=== PATIENT | female | born 1990 | race Caucasian/White ===

== ENCOUNTER 2020-09-30 11:15 | Inpatient (IN) | payer MEDICAID, SELFPAY ==
[2020-09-30] VITALS (77 sets, daily range): BP systolic 104–167; BP diastolic 56–96; PULSE 65–131; RESP 17–20; TEMP 36–38.9; O2SAT 98–100; BMI 31.1
[2020-09-30] MEDS: lactated ringers 1,000 ML 999 ML IV (11:03)
[2020-09-30 11:06] LABS: Basophils % 0.2 %; Eosinophils # 0.1 10^3/uL (0.0-0.8); Eosinophils % 0.5 %; Hematocrit 30.3 % (37.0-47.0); Hemoglobin 9.6 g/dL (11.5-15.3); Lymphocytes # 1.4 10^3/uL (0.8-4.8); Lymphocytes % 11.9 %; Mean Corpuscular HGB Conc 31.7 g/dL (30.0-36.0); Mean Corpuscular Hemoglobin 23.7 pg (28.0-34.0); Mean Corpuscular Volume 74.8 fL (81-99); Mean Platelet Volume 12.2 fL (7.4-10.4); Monocytes # 0.6 10^3/uL (0.2-0.9); Monocytes % 5.3 %; Neutrophils # 9.33 10^3/uL (1.8-7.7); Neutrophils % 81.6 %; Nucleated Red Blood Cells % 0.2 %; Platelet Count 222 10^3/cmm (130-400); Red Blood Count 4.05 10^6/uL (4.1-5.3); Red Cell Distribution Width 15.5 % (12.1-15.1); White Blood Count 11.4 10^3/uL (4.0-10.0)
[2020-09-30 11:24] LABS: Amphetamines Screen Urine Negative (Negative); Barbiturates Screen Urine Negative (Negative); Benzodiazepines Screen Urine Negative (Negative); Cocaine Screen Urine Negative (Negative); Opiate Screen Urine Negative (Negative); PCP Screen Urine Negative (Negative); THC Screen Urine Negative (Negative)
--- NOTE | 2020-09-30 11:40 | ANES.PREANE2 ---
Pre-Anesthetic Assessment Pre-Anesthetic Assessment: Height/Weight: Height 1.68 m Weight 87.543 kg Temp Pulse Resp BP Pulse Ox 97.0 F L 72 18 127/74 100 09/30/20 12:04 09/30/20 13:15 09/30/20 10:35 09/30/20 13:15 09/30/20 12:23 Preop Diagnosis: IUP Proposed Procedure: Epidural Familial anesthetic complications: None Was Beta Kishor taken within 24 hours: N/A Last intake: Ate hot pocket this morning Social: Social History: Tobacco and No alcohol Exam: Pre-Anes Outpt Exam: alert, oriented x 3, clear to auscultation bilaterally and regular rate & rhythm Airway: Cervical ROM: WNL MP: 3 Dentition: Chipped Anesthetic Plan: ASA status: 2 Anesthesia: Regional (specify below) Risk of > 500 ml blood loss (7ml/kg in children): Yes, adequate IV access and fluids planned Meds/Allergies Current Medications: Current Medications Generic Name Dose Route Start Last Admin Trade Name Freq PRN Reason Stop Dose Admin Dextrose/Lactated Ringer's 1,000 mls @ 125 m ls/hr 09/30/20 10:45 09/30/20 12:00 Dextrose 5%-Lact ated Ringers IV 125 mls/hr .Q8H ELISSA Administration Ropivacaine 200 mg in 100 mls @ 13 mls/hr 09/30/20 10:45 09/30/20 12:00 Naropin Premix EPIDURAL 13 mls/hr .Q7H42M ELISSA Administration Lactated Ringer's 1,000 mls @ 999 m ls/hr 09/30/20 10:37 09/30/20 12:02 Lactated Ringers IV Infused .Q1H1M PRN Infusion See label comment s PFSH Anesthesia Female Reproductive History: : 5 Data Anesthesia CBC & Chem 7: 09/30/20 10:45 Other Labs: Laboratory Results - last 48 hr 09/30/20 09/30/20 10:30 10:45 WBC 11.4 H RBC 4.05 L Hgb 9.6 L Hct 30.3 L MCV 74.8 L MCH 23.7 L MCHC 31.7 RDW 15.5 H Plt Count 222 MPV 12.2 H Neut % (Auto) 81.6 Lymph % (Auto) 11.9 [place] % (Auto) 5.3 Eos % (Auto) 0.5 Baso % (Auto) 0.2 Neut # (Auto) 9.33 H Lymph # (Auto) 1.4 [place] # (Auto) 0.6 Eos # (Auto) 0.1 Baso # (Auto) 0.0 Nucleated RBC % (auto) 0.2 Nucleated RBCs # 0.0 Urine Opiates Screen Negative Ur Barbiturates Screen Negative Ur Phencyclidine Scrn Negative Ur Amphetamines Screen Negative U Benzodiazepines Scrn Negative Urine Cocaine Screen Negative U Marijuana (THC) Screen Negative Cardiac Studies: No Data to Display
[2020-09-30] MEDS: dextrose 5%-lactated ringers 1,000 ML 125 ML IV (12:00)
--- NOTE | 2020-09-30 13:22 | ANES.PROC ---
Anesthesia Procedures Procedure/Date: 09/30/20 Epidural: Time Out Performed: Yes Consents Signed: Procedure Consent Consent: requested by attending/covering physician, from patient, risks and benefits reviewed and patient agrees to proceed Lumbar Level: L3-L4 Epidural position: sitting Epidural procedure: sterile prep of area, 1% lidocaine to numb the area, 18 g needle, negative for paresthesia passed, neg for paresthesia, test dose given, 1.5% xylocaine 1:200k epi (5 cc (divided dose)), 0.2% Ropivacaine bolus ml (5 cc), placed PCEA, no systemic response, sterile dressing applied, L.U.D. no apparent complications and 0.2% Ropiavacaine @ mls/hr (13) Additional Comments: MIKE at 8 cm threaded to 13 cm
[2020-09-30] MEDS: oxytocin 30 UNIT/500 ML BAG IV (13:40)
--- NOTE | 2020-09-30 15:41 | PM.DELIVERY ---
Delivery Note: Date of delivery: September 30, 2020 Pre-Delivery Course: The patient is a 29-year-old 5 para 4-0-0-4 at 39 weeks estimated gestational age who presented to the hospital in active labor with spontaneous rupture of membranes. Upon arrival to hospital she was having copious amounts of clear vaginal drainage. She was found to be ruptured. Her cervix was noted to be 6 cm dilated. As result she was admitted to the hospital. An epidural was placed. An amniotomy was performed for a 4 bag that was noted. She then progressed to complete without difficulty. Her was notable for being on Subutex which was provided for her by [facility] in [place]. She was on 8 mg twice a day. In addition she was on have chronic hepatitis C prior to her . She smokes daily. Her labs were otherwise unremarkable. Her blood type is A positive. Her glucose screen was within normal limits. She had had a positive group B strep with a previous , but her infants did not have any problems and during this her group B strep was negative. Her Covid test was negative. She demonstrated appropriate interval growth during her , and her anatomic survey was unremarkable. Delivery: DELIVERY: The patient progressed to complete without difficulty. She delivered a female with a weight of 7 pounds 15 ounces with Apgars of 8, 9. The baby was delivered from the ALEA position and placed on the mother's abdomen. The cord was then clamped and cut approximately 1 minute after delivery. There was no nuchal cord. There was no meconium. The placenta and 3 vessel cord were delivered intact shortly thereafter. The perineum and vaginal vault were carefully examined. No significant lacerations were noted. Both the mother and the baby were in stable condition. A&P Assessment and plan (1) 39 weeks gestation of : I anticipate routine care. We will continue her Subutex. While anticipate she can technically be discharged tomorrow, her baby will likely require a 5 to 7-day hospital stay to evaluate for, and treat potential withdrawal. Otherwise, I am hopeful that she will have an unremarkable hospital stay. Status: Acute (2) Vaginal delivery: Status: Acute (3) complicated by subutex maintenance, antepartum: Status: Acute (4) Hepatitis C: Status: Acute (5) Tobacco use complicating : Status: Acute Coding Level of Care Code Acute Hot Air Furnace Installer Repairer for Chg Fwd Diagnoses 39 weeks gestation of Z3A.39 Vaginal delivery O80 complicated by subutex maintenance, antepartum O99.320; F11.20 Hepatitis C B19.20 Tobacco use complicating O99.330
[2020-09-30] MEDS: docusate sodium 100 mg Capsule PO (17:49)
--- NOTE | 2020-09-30 18:23 | PC.NURSE ---
Patient ambulated to PP room at this time, no complaints of dizziness, nausea, or lightheadedness
[2020-09-30] MEDS: acetaminophen 325 mg Tablet 650 MG PO (18:56)
[2020-09-30] MEDS: buprenorphine-naloxone 4-1 mg Film 2 EACH SUBLINGUAL (19:23)
[2020-09-30] MEDS: ibuprofen 800 mg tablet PO (20:16)
[2020-09-30] MEDS: nicotine 21 mg Patch 1 PATCH TRANSDERMA (21:05)
[2020-10-01 00:13] VITALS: BP 112/62; PULSE 76; RESP 18; TEMP 36.9; O2SAT 98
[2020-10-01] MEDS: acetaminophen 325 mg Tablet 650 MG PO ×2 (03:06→12:31)
[2020-10-01 03:52] LABS: Hematocrit 28.5 % (37.0-47.0); Mean Corpuscular HGB Conc 31.6 g/dL (30.0-36.0); Mean Corpuscular Hemoglobin 23.7 pg (28.0-34.0); Mean Corpuscular Volume 75.2 fL (81-99); Mean Platelet Volume 10.8 fL (7.4-10.4); Platelet Count 183 10^3/cmm (130-400); Red Blood Count 3.79 10^6/uL (4.1-5.3); Red Cell Distribution Width 15.7 % (12.1-15.1); White Blood Count 18.4 10^3/uL (4.0-10.0)
[2020-10-01 04:20] VITALS: BP 131/88; PULSE 71; RESP 16; TEMP 36.8; O2SAT 100
[2020-10-01] MEDS: docusate sodium 100 mg Capsule PO (08:46)
[2020-10-01] MEDS: prenatal vitamin Capsule 1 CAP PO (08:46)
[2020-10-01] MEDS: ibuprofen 800 mg tablet PO ×2 (08:46→15:48)
[2020-10-01 08:49] VITALS: BP 107/74; PULSE 71; RESP 16; TEMP 36.4
[2020-10-01] MEDS: buprenorphine-naloxone 4-1 mg Film 2 EACH SUBLINGUAL (09:24)
--- NOTE | 2020-10-01 09:31 | ANE.PACU2 ---
Inpatient post-anesthesia follow up: Airway intact: Yes Vital signs: Temperature 97.5 F Pulse Rate 71 Respiratory Rate 16 Blood Pressure 107/74 Pulse Oximetry 100 Oxygen Delivery Me thod Room Air Oxygen Flow Rate 10 Fraction of Inspir ed Oxygen Hydration adequate: Yes Nausea and vomiting: No Pain level: 2 Mental status: Baseline Additional Comments: No s/s infection at epidural site, no weakness/numbness legs, no headache, peeing [id number] sánchez
--- NOTE | 2020-10-01 16:19 | P.DS_ITS ---
Discharge Providers SPECIAL EDUCATION TUTOR Date of Admission: 09/30/20 11:15 Date of Discharge: 10/01/20 Attending Provider at Admission: Matthew Heard MD Attending Provider at Discharge: Matthew Heard MD Primary Care Provider: Mu Ritter Diagnoses at Discharge Discharge Diagnosis (1) 39 weeks gestation of : Status: Acute (2) Vaginal delivery: Status: Acute (3) complicated by subutex maintenance, antepartum: Status: Acute (4) Hepatitis C: Status: Acute (5) Tobacco use complicating : Status: Acute Reason for Visit Reason for Visit: Possible rupture of membranes Hospital Course Hospital Course The patient presented to the hospital in active labor with spontaneous rupture of membranes. She progressed to complete and had an unremarkable delivery of a healthy appearing term . Her course is also been unremarkable. Her pain is been well controlled. Her bleeding has been within normal limits. There have been no concerns. She has continued on her Suboxone. We did have to replace it with Subutex for 1 equivalent dose. She will be discharged today, but will be staying in the hospital for the next 4 to 6 days with her infant. Information Peripartum Data: Infant Delivery Method: Vaginal Physical Exam Narrative: EXAM NARRATIVE: The patient is alert. She appears comfortable. Her heart has a regular rate and rhythm with no murmurs appreciated. Lungs are clear to auscultation bilaterally. Her fundus is firm and below the umbilicus. Urinary Catheter Management^: Chavez: Cath Placed During This Visit: yes Urinary Catheter Date of Insertion: 09/30/20 Urinary Catheter Time of Insertion: 12:30 Discharge Data Data Completed and Pending: Labs from last 24 hours 10/01/20 03:42 WBC 18.4 H RBC 3.79 L Hgb 9.0 L Hct 28.5 L MCV 75.2 L MCH 23.7 L MCHC 31.6 RDW 15.7 H Plt Count 183 MPV 10.8 H Vitals: Last Vital Signs Temp 97.5 F L 10/01/20 08:49 Pulse 71 10/01/20 08:49 Resp 16 10/01/20 08:49 BP 107/74 10/01/20 08:49 Pulse Ox 100 10/01/20 04:20 Discharge Plan Discharge Patient Disposition: Home Condition: Stable Prescriptions: New ibuprofen 800 mg Tablet 800 mg PO TID Qty: 45 RF: 0 Continued buprenorphine HCl 8 mg Tablet, Sublingual 8 mg SUBLINGUAL BID RF: 0 Discharge Orders: Discharge Order (Routine); Ordered 10/01/20 Ordered By: Matthwe Heard Referrals: Matthew Heard MD [Physician] - 6 Weeks Discharge Diet: Usual diet Discharge Activity: Limit activity as instructed Discharge Attestations SPECIAL EDUCATION TUTOR Time Spent in Discharge Care*: less than 30 min Coding Level of Care Code Acute Snow Removing Supervisor for Chg Fwd Diagnoses 39 weeks gestation of Z3A.39 Vaginal delivery O80 complicated by subutex maintenance, antepartum O99.320; F11.20 Hepatitis C B19.20 Tobacco use complicating O99.330
[2020-10-01 17:34] VITALS: BP 125/74; PULSE 83; RESP 16; TEMP 36.8
== END 2020-10-01 17:50 | disposition home or self-care (01) | DRG 806 ==
LOC: OPOB 15:42 → OBGYN 15:42
PROVIDERS: Admitting Provider Family Medicine; Family Provider Nurse Practitioner Family; PCP Nurse Practitioner Family; Visit Provider Family Medicine
DX: O98.42 Viral hepatitis complicating childbirth (principal); F11.20 Opioid dependence, uncomplicated; Z37.0 Single live birth; O99.324 Drug use complicating childbirth; B18.2 Chronic viral hepatitis C; O99.334 Smoking (tobacco) complicating childbirth; F17.210 Nicotine dependence, cigarettes, uncomplicated; O99.344 Other mental disorders complicating childbirth; F31.9 Bipolar disorder, unspecified; Z3A.39 39 weeks gestation of pregnancy
CPT/HCPCS: 12345; 36415; 51702; 59025; 59409; 80306; 83986; 85025; 85027; 99211; J0573; J2795

== ENCOUNTER → 2021-05-12 14:48 | Outpatient (BNVA) | payer OTHER, MEDICAID, SELFPAY | PROVIDERS: Family Provider Nurse Practitioner Family; PCP Nurse Practitioner Family; Visit Provider Psychiatry & Neurology Psychiatry | DX: F33.1 Major depressive disorder, recurrent, moderate (principal); F11.20 Opioid dependence, uncomplicated; F15.20 Other stimulant dependence, uncomplicated | CPT/HCPCS: 99204 ==

== ENCOUNTER 2022-03-17 02:20 | Inpatient (IN) | payer MEDICAID, SELFPAY ==
[2022-03-16] VITALS (14 sets, daily range): BP systolic 137–155; BP diastolic 79–91; PULSE 44–76; RESP 16; TEMP 36.7; O2SAT 98–99; BMI 33.7
[2022-03-16] MEDS: miSOPROStol 100 mcg tablet 25 MCG VAGINAL (20:55)
[2022-03-16 21:02] LABS: Basophils % 0.3 %; Eosinophils # 0.1 10^3/uL (0.0-0.8); Eosinophils % 1.7 %; Hematocrit 32.8 % (37.0-47.0); Hemoglobin 10.4 g/dL (11.5-15.3); Lymphocytes # 1.4 10^3/uL (0.8-4.8); Lymphocytes % 21.8 %; Mean Corpuscular HGB Conc 31.7 g/dL (30.0-36.0); Mean Corpuscular Hemoglobin 25.4 pg (28.0-34.0); Mean Platelet Volume 11.6 fL (7.4-10.4); Monocytes # 0.4 10^3/uL (0.2-0.9); Monocytes % 5.8 %; Neutrophils # 4.49 10^3/uL (1.8-7.7); Neutrophils % 70.1 %; Nucleated Red Blood Cells % 0 %; Platelet Count 239 10^3/cmm (130-400); Red Cell Distribution Width 14.3 % (12.1-15.1); White Blood Count 6.4 10^3/uL (4.0-10.0)
[2022-03-16] MEDS: nicotine 21 mg Patch 1 PATCH TRANSDERMA (22:42)
[2022-03-17] VITALS (49 sets, daily range): BP systolic 117–176; BP diastolic 62–96; PULSE 41–73; RESP 16–17; TEMP 36.6–36.7; O2SAT 97–100
[2022-03-17] MEDS: lactated ringers 1,000 ML 999 ML IV ×2 (00:15→01:00)
[2022-03-17] MEDS: fentaNYL 50 mcg/mL INJ 2mL IVP (01:00)
--- NOTE | 2022-03-17 01:28 | P.ANESASSM_ITS ---
Pre-Anesthetic Assessment Height/Weight: Height 1.68 m Weight 94.801 kg Temp Pulse Resp BP Pulse Ox O2 Del Method 98.0 F 47 L 17 136/89 99 03/16/22 20:30 03/17/22 01:24 03/17/22 01:00 03/17/22 01:24 03/17/22 01:22 03/16/22 21:41 Preop Diagnosis: IUP epidural Familial anesthetic complications: none Was Beta Kishor taken within 24 hours: N/A Was Clonidine taken within 24 hours: N/A Last Intake: 15:00 Social Tobacco and No alcohol 1.5ppd pack(s) per day 10 pack years Exam alert, oriented x 3, clear to auscultation bilaterally and regular rate & rhythm Airway Submandibular: within normal limits Cervical ROM: within normal limits Mallampati: Class II Dentition: false Pulmonary None reported CV/HEM None reported None reported Hepatic Hepatitis (B) GI Gastroesophageal Reflux Disease Metabolic None reported Musc/skel None reported Neuropsych Anxiety and Depression Anesthetic Plan ASA status: 2 Anesthesia: Regional (specify below) (epidural) Risk of > 500 ml blood loss (7ml/kg in children): No Medications/Allergies Home Medications Medication Instructions Recorded Confirmed Last Taken Type buprenorphine HCl 8 mg sublingual 8 mg sublingual BID 09/30/20 03/16/22 03/16/22 History tablet 1 tab PO DAILY 03/16/22 03/16/22 03/16/22 History Allergies Allergy/AdvReac Type Severity Reaction Status Date / Time cephalexin [From Keflex] Allergy Unknown ALGY-Hives Verified 03/16/22 22:29 Penicillins Allergy Unknown ALGY-Hives Verified 03/16/22 22:29 Current Medications Generic Name Dose Route Start Last Admin Trade Name Freq PRN Reason Stop Dose Admin Fentanyl 25 - 100 mcg 03/16/22 20:11 03/17/22 01:00 Fentanyl 50 Mcg/Ml Inj 2ml IVP 25 mcg Q1H PRN Administration SEVERE PAIN Lactated Ringer's 1,000 mls @ 999 mls/hr 03/17/22 00:12 03/17/22 00:15 Lactated Ringers IV 999 mls/hr .Q1H1M PRN Administration See label comments Nicotine 1 patch 03/16/22 22:16 03/16/22 22:42 Nicotine 21 Mg Patch TRANSDERMA 1 patch DAILY ELISSA Administration PFSH Anesthesia Medical History (Updated 05/19/21 @ 11:36 by Flora Mondragon) Psychiatric care Social History (Updated 05/12/21 @ 15:08 by Neftali Drake LPN) Smoking and tobacco status: current every day smoker cigarettes Years cigarette s smoked: 17 Quit status (tobacco): has tried quititng Number of times tried to quit tobacco: 7 Second hand smoke exposure: Yes Female Reproductive History : 6 Data Anesthesia : 03/16/22 20:49 Short CBC 03/16/22 Range/Units 20:49 WBC 6.4 (4.0-10.0) 10^3/uL Hgb 10.4 L (11.5-15.3) g/dL Hct 32.8 L (37.0-47.0) % MCV 80.0 L (81-99) fl Plt Count 239 (130-400) 10^3/cmm Neut % (Auto) 70.1 % Neut # (Auto) 4.49 (1.8-7.7) 10^3/uL Cardiac Studies: No Data to Display
--- NOTE | 2022-03-17 01:31 | ANES.PROC ---
Anesthesia Procedures Procedure/Date: 03/17/22 Epidural: Time Out Performed: Yes Consents Signed: Procedure Consent and NPO Consent Consent: requested by attending/covering physician, from patient, risks and benefits reviewed and patient agrees to proceed Lumbar Level: L3-L4 Epidural position: sitting Epidural procedure: sterile prep of area (betadine), 1% lidocaine to numb the area (3ml), 18 g needle, negative for paresthesia passed, neg for paresthesia, test dose given, 1.5% xylocaine 1:200k epi (5ml), 0.2% Ropivacaine bolus ml (5ml), placed PCEA, no systemic response, sterile dressing applied, L.U.D. no apparent complications and 0.2% Ropiavacaine @ mls/hr (13ml/hr)
[2022-03-17] MEDS: lactated ringers 1,000 ML 125 ML IV (02:46)
[2022-03-17] MEDS: labetalol 5 mg/mL SDV 20mL 20 MG IVP (02:46)
[2022-03-17 02:51] LABS: Add Urine Culture? Yes; Add Urine Microscopic? YES; Bacteria Urine TRACE /hpf; Bilirubin Urine Neg (Negative); Blood Urine 3+ (Negative); Glucose Urine UA Norm (Normal); Ketones Urine Negative (Negative); Leukocyte Esterase Urine Negative (Negative); Nitrate Urine Negative (Negative); Protein Urine Neg (Negative); RBC Urine 25-40 /hpf (0-2); Squamous Epithelial Cell Urine 0-4 /hpf (0-5); Urine Appearance Clear (CLEAR); Urine Color Yellow (Yellow); Urobilinogen Urine 1 mg/dL (Negative); WBC Urine 0-4 /hpf (0-5); pH Urine 6 (5-7)
[2022-03-17 03:06] LABS: Alanine Aminotransferase 19 U/L (0-33); Albumin Level 3.1 g/dL (3.5-5.2); Alkaline Phosphatase 197 IU/L (35-105); Anion Gap 14.5 (5-19); Aspartate Amino Transferase 25 U/L (0-32); Blood Urea Nitrogen 8 mg/dL (6-20); Calcium 8.7 mg/dL (8.5-10.5); Carbon Dioxide 25 mmol/L (22-29); Chloride 101 mmol/L (98-107); Globulin 3.4 g/dL (1.3-4.6); Glucose 88 mg/dL (65-115); Osmolality Calculated 282 mOsm/kg (285-295); Potassium 3.5 mmol/L (3.5-5.1); Sodium 137 mmol/L (136-145); Total Bilirubin 0.5 mg/dL (0.15-1.2); Total Protein 6.5 g/dL (6.6-8.7); Uric Acid 5.6 mg/dL (2.4-5.7)
[2022-03-17 03:08] LABS: Urine Creatinine 52 mg/dL (28-217); Urine Protein Random 8 mg/dL
[2022-03-17] MEDS: oxytocin 30 UNIT/500 ML BAG 600 UNIT IV (03:10)
[2022-03-17 03:14] LABS: UPRO/UCREAT Ratio 0.15 mg/mg CR
--- NOTE | 2022-03-17 04:21 | PM.OPHPUD ---
Labor & Delivery H&P Update Date of Procedure: March 17, 2022 Date H&P Performed: 03/16/22 Changes to previous documentation: None Admission Diagnosis: Preop diagnosis: IUP Planned procedure: Spontaneous vaginal delivery Other information: The patient is a 31-year-old 6 para 5-0-0-5 with an estimated gestational age of 40 weeks and 2 days who presented to the hospital for induction. Her is been remarkable for being positive for hepatitis C. She is also on Subutex daily. Otherwise her has been unremarkable. She has had consistent care. There have been no concerns. Her blood type is a positive. Her antibody screen is negative. She was GBS negative. The remainder of her labs are within normal limits.
--- NOTE | 2022-03-17 04:24 | PM.DELIVERY ---
Delivery Note: Date of delivery: March 17, 2022 Pre-delivery diagnoses: 31-year-old 6 para 5 at 40 weeks and 2 days gestational age presenting for induction Post-delivery diagnoses: Status post spontaneous vaginal delivery Procedure: Spontaneous vaginal delivery Delivering Physician: Matthew Heard Estimated blood loss (mL): 100 Pre-Delivery Course: The patient presented to the hospital for induction. She was placed on Cytotec x1. An epidural was placed. She did have 2 episodes of systolic blood pressures greater than 160 after her epidural. She was placed on labetalol x1. She had no other symptoms of preeclampsia. A preeclamptic panel was ordered and was negative. She progressed to complete without difficulty. Delivery: DELIVERY: The patient progressed to complete without difficulty. She delivered a female with a weight of 7 pounds 10 ounces with Apgars of 9, 9. The baby was delivered from the ALEA position and placed on the mother's abdomen. The cord was then clamped and cut. There was a nuchal cord x1 which was easily reduced prior to delivery of the shoulders. There was terminal meconium. The placenta and 3 vessel cord were delivered intact shortly thereafter. The perineum and vaginal vault were carefully examined. No lacerations were noted. Both the mother and the baby were in stable condition. A&P Assessment and plan (1) 40 weeks gestation of : Status: Acute (2) Hepatitis C: Status: Acute (3) Opioid use disorder, severe, dependence: Status: Acute (4) Status post vaginal delivery: I anticipate routine care. She will continue on her Subutex. Status: Acute Coding Level of Care Code Acute Carbon Paste Mixer Operator for Chg Fwd Diagnoses 40 weeks gestation of Z3A.40 Hepatitis C B19.20 Opioid use disorder, severe, dependence F11.20 Status post vaginal delivery
--- NOTE | 2022-03-17 05:26 | PC.NURSE ---
Insertion site bleeding despite pressure held with 2x2, pressure dressing applied with 2x2 and foam tape.
[2022-03-17] MEDS: prenatal vitamin Capsule 1 CAP PO (09:42)
[2022-03-17] MEDS: ibuprofen 800 mg tablet PO ×2 (09:42→21:07)
[2022-03-17] MEDS: docusate sodium 100 mg Capsule PO ×2 (09:42→21:07)
[2022-03-17] MEDS: buprenorphine-naloxone 4-1 mg Film 2 EACH SUBLINGUAL ×2 (10:00→21:07)
--- NOTE | 2022-03-17 14:08 | ANE.PACU2 ---
Inpatient post-anesthesia follow up: Airway intact: Yes Vital signs: Temperature 98.1 F Pulse Rate 45 Respiratory Rate 17 Blood Pressure 142/63 Pulse Oximetry 100 Oxygen Delivery Me thod Room Air Oxygen Flow Rate Fraction of Inspir ed Oxygen Hydration adequate: Yes Nausea and vomiting: No Pain level: 2 Mental status: Baseline
[2022-03-17 16:03] LABS: Hematocrit 31.6 % (37.0-47.0); Hemoglobin 10.5 g/dL (11.5-15.3); Mean Corpuscular HGB Conc 33.2 g/dL (30.0-36.0); Mean Corpuscular Hemoglobin 25.5 pg (28.0-34.0); Mean Corpuscular Volume 76.9 fl (81-99); Mean Platelet Volume 11.5 fL (7.4-10.4); Platelet Count 226 10^3/cmm (130-400); Red Blood Count 4.11 10^6/uL (4.1-5.3); Red Cell Distribution Width 14.5 % (12.1-15.1); White Blood Count 9.3 10^3/uL (4.0-10.0)
[2022-03-18 05:45] VITALS: BP 129/72; PULSE 44; RESP 15; TEMP 36.6; O2SAT 96
[2022-03-18] MEDS: docusate sodium 100 mg Capsule PO (09:39)
[2022-03-18] MEDS: ibuprofen 800 mg tablet PO (09:39)
[2022-03-18] MEDS: prenatal vitamin Capsule 1 CAP PO (09:39)
[2022-03-18] MEDS: buprenorphine-naloxone 4-1 mg Film 2 EACH SUBLINGUAL (09:39)
[2022-03-18 09:45] VITALS: BP 151/73; PULSE 69; RESP 16; TEMP 36.4
--- NOTE | 2022-03-18 11:01 | P.DS_ITS ---
Discharge Providers FRANCHISE BUSINESS CONSULTANT Date of Admission: 03/17/22 02:20 Date of Discharge: 03/18/22 Attending Provider at Admission: Matthew Heard MD Attending Provider at Discharge: Matthew Heard MD Primary Care Provider: Mu Ritter Diagnoses at Discharge Discharge Diagnosis (1) 40 weeks gestation of : Status: Acute (2) Hepatitis C: Status: Acute (3) Opioid use disorder, severe, dependence: Status: Acute (4) Status post vaginal delivery: Status: Acute Reason for Visit Reason for Visit: induction Hospital Course Hospital Course The patient presented to the hospital for induction. She was placed on Cytotec 25 mcg x 1. She then progressed to complete and had an unremarkable vaginal delivery of a healthy-appearing infant. Her course was unremarkable. Her bleeding was within normal limits. Her pain was well controlled. There were no concerns. Information Peripartum Data: Delivery Method: Vaginal Physical Exam Narrative: The patient is alert. She appears comfortable. Her heart has a regular rate and rhythm with no murmurs appreciated. Lungs are clear to auscultation bilaterally. Her fundus is firm and below the umbilicus. Urinary Catheter Management: Chavez Latex: Cath Placed During This Visit: yes, but has since been removed by the nurse Reason for Continuing Indwelling Catheter: Other Urinary Catheter Date of Insertion: 03/17/22 Urinary Catheter Time of Insertion: 01:54 Date Urinary Catheter Removed: 03/17/22 Time Urinary Catheter Discontinued: 03:06 Discharge Data Studies Completed and Pending Pending at discharge Category Date Time Status Urine Culture Stat Lab 03/17/22 02:30 Results Laboratory Results WBC 9.3 10^3/uL (4.0-10.0) 03/17/22 15:58 RBC 4.11 10^6/uL (4.1-5.3) 03/17/22 15:58 Hgb 10.5 g/dL (11.5-15.3) L 03/17/22 15:58 Hct 31.6 % (37.0-47.0) L 03/17/22 15:58 MCV 76.9 fl (81-99) L 03/17/22 15:58 MCH 25.5 pg (28.0-34.0) L 03/17/22 15:58 MCHC 33.2 g/dL (30.0-36.0) 03/17/22 15:58 RDW 14.5 % (12.1-15.1) 03/17/22 15:58 Plt Count 226 10^3/cmm (130-400) 03/17/22 15:58 MPV 11.5 fL (7.4-10.4) H 03/17/22 15:58 Neut % (Auto) 70.1 % 03/16/22 20:49 Lymph % (Auto) 21.8 % 03/16/22 20:49 [place] % (Auto) 5.8 % 03/16/22 20:49 Eos % (Auto) 1.7 % 03/16/22 20:49 Baso % (Auto) 0.3 % 03/16/22 20:49 Neut # (Auto) 4.49 10^3/uL (1.8-7.7) 03/16/22 20:49 Lymph # (Auto) 1.4 10^3/uL (0.8-4.8) 03/16/22 20:49 [place] # (Auto) 0.4 10^3/uL (0.2-0.9) 03/16/22 20:49 Eos # (Auto) 0.1 10^3/uL (0.0-0.8) 03/16/22 20:49 Baso # (Auto) 0.0 10^3/uL (0.0-0.1) 03/16/22 20:49 Nucleated RBC % (auto) 0 % 03/16/22 20:49 Nucleated RBCs # 0.0 /100WBC 03/16/22 20:49 Sodium 137 mmol/L (136-145) 03/17/22 02:30 Potassium 3.5 mmol/L (3.5-5.1) 03/17/22 02:30 Chloride 101 mmol/L (98-107) 03/17/22 02:30 Carbon Dioxide 25 mmol/L (22-29) 03/17/22 02:30 Anion Gap 14.5 (5-19) 03/17/22 02:30 BUN 8 mg/dL (6-20) 03/17/22 02:30 Creatinine 0.9 mg/dL (0.5-0.9) 03/17/22 02:30 GFR Calculation 73.0 mL/min (90-130) L 03/17/22 02:30 Glucose 88 mg/dL (65-115) 03/17/22 02:30 Calculated Osmolality 282 mOsm/kg (285-295) L 03/17/22 02:30 Uric Acid 5.6 mg/dL (2.4-5.7) 03/17/22 02:30 Calcium 8.7 mg/dL (8.5-10.5) 03/17/22 02:30 Total Bilirubin 0.5 mg/dL (0.15-1.2) 03/17/22 02:30 AST 25 U/L (0-32) 03/17/22 02:30 ALT 19 U/L (0-33) 03/17/22 02:30 Alkaline Phosphatase 197 IU/L (35-105) H 03/17/22 02:30 Total Protein 6.5 g/dL (6.6-8.7) L 03/17/22 02:30 Albumin 3.1 g/dL (3.5-5.2) L 03/17/22 02:30 Globulin 3.4 g/dL (1.3-4.6) 03/17/22 02:30 Urine Color Yellow (Yellow) 03/17/22 02:30 Urine Appearance Clear (CLEAR) 03/17/22 02:30 Urine pH 6 (5-7) 03/17/22 02:30 Ur Specific [place] 1.010 (1.005-1.030) 03/17/22 02:30 Urine Protein Neg (Negative) 03/17/22 02:30 Urine Glucose (UA) Norm (Normal) 03/17/22 02:30 Urine Ketones Negative (Negative) 03/17/22 02:30 Urine Blood 3+ (Negative) H 03/17/22 02:30 Urine Nitrate Negative (Negative) 03/17/22 02:30 Urine Bilirubin Neg (Negative) 03/17/22 02:30 Urine Urobilinogen 1 mg/dL (Negative) H 03/17/22 02:30 Ur Leukocyte Esterase Negative (Negative) 03/17/22 02:30 Urine RBC 25-40 /hpf (0-2) H 03/17/22 02:30 Urine WBC 0-4 /hpf (0-5) H 03/17/22 02:30 Ur Squamous Epith Cells 0-4 /hpf (0-5) H 03/17/22 02:30 Amorphous Sediment Not Reportable 03/17/22 02:30 Urine Bacteria Trace /hpf (NONE) 03/17/22 02:30 U Random Total Protein 8 mg/dL 03/17/22 02:30 Urine Creatinine 52 mg/dL (28-217) 03/17/22 02:30 Protein/Creatinin Ratio 0.15 mg/mg CR 03/17/22 02:30 Vitals Last Vital Signs Temp 97.5 F L 03/18/22 09:45 Pulse 69 03/18/22 09:45 Resp 16 03/18/22 09:45 BP 151/73 03/18/22 09:45 Pulse Ox 96 03/18/22 05:45 O2 Del Method 03/18/22 09:45 Discharge Plan Discharge Patient Disposition: Home Condition: Stable Prescriptions: New ibuprofen 800 mg Tablet 800 mg PO TID Qty: 45 0RF Continued buprenorphine HCl 8 mg Tablet, Sublingual 8 mg SUBLINGUAL BID 1 tab PO DAILY Discharge Orders: Discharge Order (Routine); Ordered 03/18/22 Ordered By: Matthew Heard Referrals: Matthew Heard MD [Physician] - 6 Weeks Discharge Diet: Usual diet Discharge Activity: Limit activity as instructed Patient Instructions: Opioid Safety Discharge Attestations FRANCHISE BUSINESS CONSULTANT Time Spent in Discharge Care*: less than 30 min Coding Level of Care Code Acute Gear Generator Set Up Operator for Chg Fwd Diagnoses 40 weeks gestation of Z3A.40 Hepatitis C B19.20 Opioid use disorder, severe, dependence F11.20 Status post vaginal delivery
[2022-03-18 12:55] VITALS: BP 148/97; PULSE 55; RESP 17; TEMP 36.4
== END 2022-03-18 13:00 | disposition home or self-care (01) | DRG 806 ==
LOC: OPOB 11:35 → OBGYN 11:35
PROVIDERS: Admitting Provider Family Medicine; PCP Nurse Practitioner Family; Visit Provider Family Medicine
DX: O48.0 Post-term pregnancy (principal); F11.20 Opioid dependence, uncomplicated; Z37.0 Single live birth; O99.324 Drug use complicating childbirth; O98.42 Viral hepatitis complicating childbirth; B19.20 Unspecified viral hepatitis C without hepatic coma; O99.334 Smoking (tobacco) complicating childbirth; F17.210 Nicotine dependence, cigarettes, uncomplicated; O69.81X0 Labor and delivery complicated by cord around neck, without compression, not applicable or unspecified; O77.0 Labor and delivery complicated by meconium in amniotic fluid; Z3A.40 40 weeks gestation of pregnancy; Z79.899 Other long term (current) drug therapy
CPT/HCPCS: 12345; 36415; 51702; 59409; 80053; 81001; 82570; 84156; 84550; 85025; 85027; 87086; J0573; J2795; J3010; J3490

== ENCOUNTER 2023-04-22 23:50 | Inpatient (IN) | payer BC, MEDICAID, SELFPAY ==
[2023-04-22 21:39] VITALS: BMI 31.6
[2023-04-22 22:05] VITALS: BP 127/75; PULSE 75
[2023-04-22 22:10] VITALS: BP 105/58; PULSE 64
[2023-04-22 22:42] LABS: Amphetamines Screen Urine Negative (Negative); Barbiturates Screen Urine Negative (Negative); Benzodiazepines Screen Urine Negative (Negative); Cocaine Screen Urine Negative (Negative); Opiate Screen Urine Negative (Negative); PCP Screen Urine Negative (Negative); THC Screen Urine Positive (Negative)
[2023-04-23] VITALS (84 sets, daily range): BP systolic 94–170; BP diastolic 53–88; PULSE 50–123; RESP 16–17; TEMP 36.1–37.2; O2SAT 86–100
[2023-04-23 00:01] LABS: Basophils % 0.2 %; Eosinophils # 0.2 10^3/uL (0.0-0.8); Eosinophils % 1.6 %; Lymphocytes # 2.1 10^3/uL (0.8-4.8); Lymphocytes % 18.8 %; Mean Corpuscular HGB Conc 32.3 g/dL (30-55); Mean Corpuscular Hemoglobin 26.9 pg (27-33); Mean Corpuscular Volume 83.3 fl (85-98); Mean Platelet Volume 11.6 fL (7.4-10.4); Monocytes # 0.5 10^3/uL (0.2-0.9); Monocytes % 4.4 %; Neutrophils # 8.15 10^3/uL (1.8-7.7); Neutrophils % 74.6 %; Nucleated Red Blood Cells % 0 %; Platelet Count 204 10^3/cmm (157-399); Red Blood Count 3.72 10^6/uL (3.85-5.65); Red Cell Distribution Width 13.9 % (12.1-15.1); White Blood Count 10.91 10^3/uL (3.29-11.43)
[2023-04-23] MEDS: dextrose 5%-lactated ringers 1,000 ML 125 ML IV (00:03)
[2023-04-23] MEDS: ceFAZolin 2,000 MG in sodium chloride 0.9% (plus) 50 ML 100 MG IV (00:03)
[2023-04-23] MEDS: miSOPROStol 100 mcg tablet 25 MCG SUBLINGUAL (00:10)
[2023-04-23] MEDS: lactated ringers 1,000 ML 999 ML IV ×2 (01:12→02:13)
--- NOTE | 2023-04-23 02:12 | ANES.PREANE2 ---
Pre-Anesthetic Assessment Height/Weight: Height 1.68 m Weight 88.904 kg Pulse BP Pulse Ox O2 Del Method 68 130/68 92 Room Air 04/23/23 02:10 04/23/23 01:58 04/23/23 02:10 04/22/23 23:12 Preop Diagnosis: IUP Labor epidural Was Beta Kishor taken within 24 hours: Yes Was Clonidine taken within 24 hours: Yes Social Tobacco (1ppd ) and No alcohol Exam alert, oriented x 3, clear to auscultation bilaterally and regular rate & rhythm Airway Submandibular: within normal limits Cervical ROM: within normal limits Mallampati: Class II Dentition: false (upper and lower) and full History/ROS No significant history except as noted Pulmonary None reported CV/HEM None reported None reported Hepatic Hepatitis (hep c) GI Gastroesophageal Reflux Disease Metabolic None reported Musc/skel None reported Neuropsych None reported Anesthetic Plan ASA status: 2 Anesthesia: Anesthesia Evaluation and Regional (specify below) Risk of > 500 ml blood loss (7ml/kg in children): No Medications/Allergies Home Medications Medication Instructions Recorded Confirmed Last Taken Type buprenorphine HCl 8 mg sublingual 8 mg sublingual BID 09/30/20 03/16/22 03/16/22 History tablet 1 tab PO DAILY 03/16/22 03/16/22 03/16/22 History ibuprofen 800 mg tablet 800 mg PO TID #45 tabs 03/18/22 Unknown Rx Allergies Allergy/AdvReac Type Severity Reaction Status Date / Time cephalexin [From Keflex] Allergy Unknown ALGY-Hives Verified 04/22/23 22:14 Penicillins Allergy Unknown ALGY-Hives Verified 04/22/23 22:14 Current Medications Generic Name Dose Route Start Last Admin Trade Name Freq PRN Reason Stop Dose Admin Dextrose/Lactated Ringer's 1,000 mls @ 125 mls/hr 04/22/23 22:00 04/23/23 00:03 Dextrose 5%-Lactated Ringers IV 125 mls/hr .Q8H ELISSA Administration PFSH Anesthesia Social History (Updated 05/12/21 @ 15:08 by Neftali Drake LPN) Smoking and tobacco status: current every day smoker cigarettes Years cigarettes smoked: 17 Quit status (tobacco): has tried quititng Number of times tried to quit tobacco: 7 Second hand smoke exposure: Yes Female Reproductive History : 7 Data Anesthesia 04/22/23 23:54 Short CBC 04/22/23 Range/Units 23:54 WBC 10.91 (3.29-11.43) 10^3/uL Hgb 10.00 L (11.27-16.99) g/dL Hct 31.0 L (36-47) % MCV 83.3 L (85-98) fl Plt Count 204 (157-399) 10^3/cmm Neut % (Auto) 74.6 % Neut # (Auto) 8.15 H (1.8-7.7) 10^3/uL Cardiac Studies: No Data to Display Anesthesia Procedures Epidural Time Out Performed: Yes Consents Signed: Procedure Consent Consent: requested by attending/covering physician, from patient, risks and benefits reviewed and patient agrees to proceed Lumbar Level: L4-L5 Epidural position: sitting Epidural procedure: sterile prep of area, 1% lidocaine to numb the area, 18 g needle, negative for paresthesia passed, neg for paresthesia, test dose given, 1.5% xylocaine 1:200k epi, placed PCEA, no systemic response, sterile dressing applied, L.U.D. no apparent complications and 0.2% Ropiavacaine @ mls/hr (10) Additional Comments: MIKE 5cm, catheter easily threaded to 5cm in the space, pt educated on MEDICAID NURSE and all questions answered. Pt reporting decreased pain with contractions. Report to RN at bedside.
[2023-04-23] MEDS: ROPivacaine syringe 100 MG/50 ML SYRINGE 10 MG EPIDURAL ×2 (02:39→07:04)
[2023-04-23] MEDS: ceFAZolin 1,000 MG in sodium chloride 0.9% (plus) 50 ML 100 MG IV (08:50)
[2023-04-23] MEDS: buprenorphine-naloxone 4-1 mg Film 2 EACH SUBLINGUAL ×2 (09:10→16:42)
[2023-04-23] MEDS: nicotine 21 mg Patch 1 PATCH TRANSDERMA (09:10)
--- NOTE | 2023-04-23 10:55 | PM.OPHPUD ---
Labor & Delivery H&P Update Date of Procedure: April 23, 2023 Date H&P Performed: 04/18/23 Admission Diagnosis: 32-year-old 8 para 7-0-0-7 at 39 weeks estimated gestational age presenting with rupture membranes. Preop diagnosis: IUP Planned procedure: Spontaneous vaginal delivery Other information: The patient is a pleasant 32-year-old female who presented to the OB department with a complaint of possible rupture membranes. Her episode occurred at about 1900 today prior to delivery. She noticed a sudden gush of fluid and continued trickling after that. After presenting to the hospital she was noted to have grossly ruptured membranes. He was nitrazine positive. Her has been remarkable for being on Subutex throughout her . She is also noted to be positive for marijuana throughout her as well. She was positive for methamphetamines earlier in her . She was completely negative on all of her drug screens in the third trimester. Her labs were significant for the following. Her blood type is a positive with her antibody screen being negative her drug screen was abnormal as stated. She is positive for hepatitis C. She is positive for group B strep. She is rubella immune. The remainder of her infectious disease profile is within normal limits. Related Problem List Diagnoses (1) Opioid use disorder, severe, dependence: (2) 39 weeks gestation of : (3) Hepatitis C: A&P Assessment and plan (1) Opioid use disorder, severe, dependence: Status: Acute (2) 39 weeks gestation of : Anticipate routine labor and routine delivery. She will be placed on GBS protocol. We placed on Subutex as well. Status: Resolved (3) Hepatitis C: Status: Acute
--- NOTE | 2023-04-23 11:01 | PM.DELIVERY ---
Delivery Note: Date of delivery: April 23, 2023 Pre-delivery diagnoses: 32-year-old 8 para 7-0-0-7 at 39 weeks estimated gestational age presenting with spontaneous rupture membranes Post-delivery diagnoses: Status post spontaneous vaginal delivery Procedure: Spontaneous vaginal delivery Delivering Physician: Matthew Heard Estimated blood loss (mL): 100 Pre-Delivery Course: The patient presented to the hospital was grossly ruptured membranes. She was placed on Cytotec sublingual x1. An epidural was placed. She was placed on GBS protocol. She did have a mild allergy to penicillin, and she was placed on cefazolin. She progressed to complete without difficulty. Delivery: DELIVERY: The patient progressed to complete without difficulty. She delivered a female with a weight of 7 pounds 15 ounces with Apgars of 8, 9. The baby was delivered from the ALEA position. and placed on the mother's abdomen. The cord was then clamped and cut. There was no nuchal cord. There was no meconium. The placenta and 3 vessel cord were delivered intact shortly thereafter. The perineum and vaginal vault were carefully examined. A first-degree anterior midline laceration was noted which was superficial and did not require repair. Both the mother and the baby were in stable condition. Post-Delivery Status: Good A&P Assessment and plan (1) Opioid use disorder, severe, dependence: (2) Hepatitis C: (3) Spontaneous vaginal delivery: The patient's course will likely be relatively unremarkable. She does desire tubal, and we are going to work and see if we can get that set up in the next 24 hours. If not she understands she can have it done in 6 weeks . (4) Marijuana use: Coding Level of Care Code Acute Code for Chg Fwd Diagnoses Opioid use disorder, severe, dependence F11.20 Hepatitis C B19.20 Spontaneous vaginal delivery O80 Marijuana use F12.90
--- NOTE | 2023-04-23 11:15 | P.HP_ITS ---
Providers/Chief Complaint Admitting Physician: Matthew Heard MD Primary Care Provider: Mu Ritter Chief Complaint: possible ROM HPI MANUFACTURING OPERATIONS MANAGER History of Present Illness Juliann Mckeon is a 32 year old multigravida female who just had an unremarkable d elivery of a healthy female . Earlier in her she expressed a desire to have sterilization. At that time we discussed the risks and alternatives. We discussed the risks of bleeding, infection, and damage intra- abdominal organs. We also discussed the 1-200 chance becoming again despite a successful tubal ligation. After discussion she still expressed a desire to have her tube tubes tied postdelivery. Today she once again expressed that desire. Present Details : 7 Para: 5 Labs Rubella: Immune RPR: Negative GBS: Positive Review of Systems General: Reports: 10 or more systems reviewed and unremarkable except in HPI and below Const: Reports: fatigue; Denies: fever(s) Eyes: Denies: change in vision Card: Denies: chest pain GI: Reports: heartburn Musc: Reports: back pain Philip/Lymph: Denies: easy bruising Medications/Allergies Home Medications Medication Instructions Recorded Confirmed Last Taken Type buprenorphine HCl 8 mg sublingual 8 mg sublingual BID 09/30/20 03/16/22 03/16/22 History tablet 1 tab PO DAILY 03/16/22 03/16/22 03/16/22 History ibuprofen 800 mg tablet 800 mg PO TID #45 tabs 03/18/22 Unknown Rx Allergies Allergy/AdvReac Type Severity Reaction Status Date / Time cephalexin [From Keflex] Allergy Unknown ALGY-Hives Verified 04/22/23 22:14 Penicillins Allergy Unknown ALGY-Hives Verified 04/22/23 22:14 PFSH MANUFACTURING OPERATIONS MANAGER PFSH: Social History (Updated 04/23/23 @ 11:19 by Matthew Heard MD) Smoking and tobacco status: current every day smoker cigarettes Years cigarettes smoked: 17 Quit status (tobacco): has tried quititng Number of times tried to quit tobacco: 7 Second hand smoke exposure: Yes Substance/Drug Use: current Substance/Drug use frequency: daily Substance/Drug use type: Marijuana History History Other History: 7 para 6-0-0-6 Vitals/I&O/Wt Last Vital Signs Temp 97.0 F L 04/23/23 06:03 Pulse 78 04/23/23 10:55 BP 137/77 04/23/23 10:55 Pulse Ox 97 04/23/23 03:12 O2 Del Method Room Air 04/22/23 23:12 04/22/23 04/23/23 04/23/23 22:59 06:59 14:59 Intake Total 1000 / 1000 100 / 100 Balance 1000 / 1000 100 / 100 Weight last 48 hrs Weight 196 lb Physical Exam Const: COMMON NORMALS: patient oriented x3 and alert HENMT: COMMON NORMALS: moist oral mucous membranes HEAD & SCALP: normal to inspection Chest: COMMONS NORMALS: normal inspection of the chest Resp: COMMON NORMALS: clear to auscultation bilaterally AUSCULTATION: clear to auscultation bilaterally Cardio: COMMON NORMALS: regular rate and regular rhythm RATE: regular rate RHYTHM: regular rhythm GI: INSPECTION: Yes normal to inspection and Yes other (Fundus at the umbilicus) Extremity: COMMON NORMALS: normal to inspection GENERAL: Yes edema (Trace) Neuro: COMMON NORMALS: patient oriented x3, moves all extremities and no sensory deficits noted SENSORIUM/ORIENTATION: Yes alert Psych: COMMON NORMALS: mental status grossly normal Skin: COMMON NORMALS: no rashes or lesions noted GENERAL SKIN EXAM: no r ashes or lesions noted Urinary Catheter Management: Chavez: Cath Placed During This Visit: yes Reason for Continuing Indwelling Catheter: Required Immobilization for Trauma or Surgery or Anesthesia Urinary Catheter Date of Insertion: 04/23/23 Urinary Catheter Time of Insertion: 03:12 Data 04/22/23 23:54 A&P Assessment and plan (1) Marijuana use: (2) Major depressive disorder, recurrent, moderate: (3) Opioid use disorder, severe, dependence: (4) Hepatitis C: (5) Sterilization: Scheduled for tomorrow morning at 7 AM. The patient will be n.p.o. after midnight. She has no further questions Attestations Medical Necessity Statement*: Routine and post tubal ligation anticipated Coding Level of Care Code Acute Code for Chg Fwd Diagnoses Marijuana use F12.90 Major depressive disorder, recurrent, moderate F33.1 Opioid use disorder, severe, dependence F11.20 Hepatitis C B19.20 Sterilization Z30.2
[2023-04-23] MEDS: ibuprofen 800 mg tablet PO ×2 (15:15→20:34)
--- NOTE | 2023-04-23 17:48 | PC.NURSE ---
this nurse at bedside with child's division
[2023-04-23] MEDS: docusate sodium 100 mg Capsule PO (20:34)
[2023-04-23 22:48] LABS: Hematocrit 32.7 % (36-47); Mean Corpuscular HGB Conc 32.1 g/dL (30-55); Mean Corpuscular Hemoglobin 27.5 pg (27-33); Mean Corpuscular Volume 85.6 fl (85-98); Mean Platelet Volume 11.9 fL (7.4-10.4); Platelet Count 182 10^3/cmm (157-399); Red Blood Count 3.82 10^6/uL (3.85-5.65); Red Cell Distribution Width 13.7 % (12.1-15.1); White Blood Count 14.68 10^3/uL (3.29-11.43)
[2023-04-24] VITALS (12 sets, daily range): BP systolic 114–155; BP diastolic 56–88; PULSE 47–74; RESP 15–18; TEMP 36.6–36.8; O2SAT 98–99
[2023-04-24] MEDS: lactated ringers 1,000 ML 999 ML IV (06:14)
[2023-04-24] MEDS: ceFAZolin 2,000 MG in sodium chloride 0.9% (plus) 50 ML 100 MG IV (06:39)
[2023-04-24] MEDS: metoclopramide 5 mg/mL SDV 2 mL 10 MG IVP (06:58)
[2023-04-24] MEDS: famotidine 20 mg/2 mL INJ IVP (06:58)
[2023-04-24] MEDS: citric acid-sodium citrate 30 mL UDC PO (06:59)
--- NOTE | 2023-04-24 07:26 | P.ANESUD_ITS ---
Pre-Anesthetic Update Pre-Anesthetic Assessment: Date of Surgery/Procedure: 05/04/23 Preop Lilli gnosis: desired sterility Proposed Procedure: Operation Date: 04/24/23 07:10 Proposed Procedures p Post Bilateral Tubal Ligation(Bilateral) - Matthew Heard MD Any changes to Pre-Anesthetic Assessment?: No Last Intake: 04/23/23 2100 Labs Last 48hrs: Short CBC 04/22/23 04/23/23 Range/Units 23:54 22:33 WBC 10.91 14.68 H (3.29-11.43) 10^ 3/uL Hgb 10.00 L 10.50 L (11.27-16.99) g/ dL Hct 31.0 L 32.7 L (36-47) % MCV 83.3 L 85.6 (85-98) fl Plt Count 204 182 (157-399) 10^3/c mm Neut % (Auto) 74.6 % Neut # (Auto) 8.15 H (1.8-7.7) 10^3/u L Vitals: Temperature 98.2 F 04/24/23 04:00 Temperature Source Oral 04/24/23 04:00 Pulse Rate 65 04/24/23 04:00 Pulse Rhythm Regular 04/23/23 08:00 Pulse Strength 3+ Normal 04/23/23 08:00 Respiratory Rate 16 04/24/23 04:00 Respiratory Effort Spontaneous, Non- Labored, Easy 04/22/23 23:12 Respiratory Depth Normal 04/22/23 23:12 Respiratory Patter n Normal 04/22/23 23:12 Blood Pressure 114/56 04/24/23 04:00 Blood Pressure Fadumo n 75 04/24/23 04:00 Blood Pressure Pos ition Right Lateral 04/24/23 04:00 Pulse Oximetry 97 04/23/23 03:12 Oxygen Delivery Me thod Room Air 04/24/23 04:00 Exam: Pre-Anes Outpt Exam: alert, oriented x 3, clear to auscultation bilaterally and regular rate & rhythm Cardiac Studies: No Data to Display
--- NOTE | 2023-04-24 07:50 | PM.OBGYDC ---
Discharge Providers HUMAN RESOURCES VICE PRESIDENT Date of Admission: 04/22/23 23:50 Date of Discharge: 04/24/23 Attending Provider at Admission: Matthew Heard MD Attending Provider at Discharge: Matthew Heard MD Primary Care Provider: Mu Ritter Diagnoses at Discharge Discharge Diagnosis (1) Marijuana use: Status: Acute (2) Major depressive disorder, recurrent, moderate: Status: Acute (3) Opioid use disorder, severe, dependence: Status: Acute (4) Hepatitis C: Status: Acute (5) Sterilization: Status: Acute (6) Status post tubal ligation: Status: Acute Reason for Visit Reason for Visit: possible ROM Hospital Course Hospital Course The patient presented to the hospital with spontaneous rupture membranes. She was not brenna consistently. Cytotec 25 mcg x 1 was given. An epidural was placed. She progressed to complete and had an unremarkable spontaneous vaginal delivery of a healthy 39-week female . Her course was remarkable for having a tubal ligation. It was also unremarkable. Her bleeding was within normal limits. Her pain was well controlled. She continued on Subutex throughout her hospital stay. There were no concerns. Information Peripartum Data: Delivery Method: Vaginal Physical Exam Narrative: She is in no acute distress Lungs are clear auscultation bilaterally Her heart has a regular rate and rhythm Her fundus is below the umbilicus and firm Her dressing is clean, dry and intact Her extremities have trace edema Urinary Catheter Management: Chavez: Cath Placed During This Visit: yes Reason for Continuing Indwelling Catheter: Required Immobilization for Trauma or Surgery or Anesthesia Urinary Catheter Date of Insertion: 04/23/23 Urinary Catheter Time of Insertion: 03:12 History History Other History: 7 para 6-0-0-6 Discharge Data Studies Completed and Pending Laboratory Results WBC 14.68 10^3/uL (3.29-11.43) H 04/23/23 22:33 RBC 3.82 10^6/uL (3.85-5.65) L 04/23/23 22:33 Hgb 10.50 g/dL (11.27-16.99) L 04/23/23 22:33 Hct 32.7 % (36-47) L 04/23/23 22:33 MCV 85.6 fl (85-98) 04/23/23 22:33 MCH 27.5 pg (27-33) 04/23/23 22:33 MCHC 32.1 g/dL (30-55) 04/23/23 22:33 RDW 13.7 % (12.1-15.1) 04/23/23 22:33 Plt Count 182 10^3/cmm (157-399) 04/23/23 22:33 MPV 11.9 fL (7.4-10.4) H 04/23/23 22:33 Neut % (Auto) 74.6 % 04/22/23 23:54 Lymph % (Auto) 18.8 % 04/22/23 23:54 Lynn % (Auto) 4.4 % 04/22/23 23:54 Eos % (Auto) 1.6 % 04/22/23 23:54 Baso % (Auto) 0.2 % 04/22/23 23:54 Neut # (Auto) 8.15 10^3/uL (1.8-7.7) H 04/22/23 23:54 Lymph # (Auto) 2.1 10^3/uL (0.8-4.8) 04/22/23 23:54 Lynn # (Auto) 0.5 10^3/uL (0.2-0.9) 04/22/23 23:54 Eos # (Auto) 0.2 10^3/uL (0.0-0.8) 04/22/23 23:54 Baso # (Auto) 0.0 10^3/uL (0.0-0.1) 04/22/23 23:54 Nucleated RBC % (auto) 0 % 04/22/23 23:54 Nucleated RBCs # 0.0 /100WBC 04/22/23 23:54 Urine Opiates Screen Negative ng/mL (Negative) 04/22/23 22:21 Ur Barbiturates Screen Negative ng/mL (Negative) 04/22/23 22:21 Ur Phencyclidine Scrn Negative ng/mL (Negative) 04/22/23 22:21 Ur Amphetamines Screen Negative ng/mL (Negative) 04/22/23 22:21 U Benzodiazepines Scrn Negative ng/mL (Negative) 04/22/23 22:21 Urine Cocaine Screen Negative ng/mL (Negative) 04/22/23 22:21 U Marijuana (THC) Screen Positive ng/mL (Negative) H 04/22/23 22:21 Vitals Last Vital Signs Temp 98.2 F 04/24/23 04:00 Pulse 65 04/24/23 04:00 Resp 16 04/24/23 04:00 BP 114/56 04/24/23 04:00 Pulse Ox 97 04/23/23 03:12 O2 Del Method Room Air 04/24/23 04:00 Discharge Plan Discharge Patient Disposition: Home Condition: Stable Prescriptions: New ibuprofen 800 mg Tablet 800 mg PO TID Qty: 45 0RF Continued buprenorphine HCl 8 mg Tablet, Sublingual 8 mg SUBLINGUAL BID 1 tab PO DAILY Discontinued ibuprofen 800 mg Tablet 800 mg PO TID Qty: 45 0RF Discharge Orders: Discharge Order (Routine); Ordered 04/24/23 Ordered By: Matthew Heard Referrals: Matthew Heard MD [Physician] - 7-10 days (Please set up 6-week check as well. Thank you) Discharge Diet: Usual diet Discharge Activity: Limit activity as instructed Patient Instructions: Opioid Safety Discharge Attestations HUMAN RESOURCES VICE PRESIDENT Time Spent in Discharge Care*: less than 30 min Coding Level of Care Code Acute Code for Chg Fwd Diagnoses Marijuana use F12.90 Major depressive disorder, recurrent, moderate F33.1 Opioid use disorder, severe, dependence F11.20 Hepatitis C B19.20 Sterilization Z30.2 Status post tubal ligation Z98.51
--- NOTE | 2023-04-24 07:55 | PM.OP ---
Operative Report Date of procedure: April 24, 2023 Pre-op diagnosis: Multigravida female desiring sterilization Post-op diagnosis: Status post sterilization Procedure done: minilaparotomy tubal ligation using a modified [place] technique Specimens removed/disposition: Bilateral fallopian tube segments with the right segment being tagged Pathology: Bilateral fallopian tube segments with the right segment being tagged Surgeon: Matthew Heard MD Estimated blood loss (mL): 5 Complications: None Procedure: The patient was brought back to the operating room where anesthesia was found to be adequate. 10 mL of 0.5% bupivacaine was then used to pre-anesthetize the area just inferior to the umbilicus. A #15 blade was then used to make a 3 cm transverse incision just inferior to the umbilicus. I then dissected down to the underlying subcutaneous tissue until arriving at the fascia. The fascia was then nicked with the scalpel. The fascial incision was extended manually. I identified the fundus of the uterus and followed it to the left fallopian tube. The fallopian tube was then followed to the fimbria. The tube was then ligated, cut, and cauterized in a modified Yong fashion using 0 chromic. The right fallopian tube was then identified and followed through to the fimbria. It was ligated, cut, and cauterized in similar fashion. The right fallopian tube was tagged. Both fallopian tubes had excellent hemostasis. The fascia was reapproximated using 0 Vicryl in running stitch. The subcutaneous tissue was carefully examined and no further bleeding was noted. The skin was then reapproximated using 4-0 Vicryl in a running subcuticular stitch. A sterile dressing was placed. All counts were correct x2. The patient was moved to the recovery room in stable condition.
[2023-04-24] MEDS: docusate sodium 100 mg Capsule PO (08:51)
[2023-04-24] MEDS: nicotine 21 mg Patch 1 PATCH TRANSDERMA (08:52)
[2023-04-24] MEDS: ibuprofen 800 mg tablet PO ×2 (08:52→15:13)
[2023-04-24] MEDS: prenatal vitamin Capsule 1 CAP PO (08:52)
[2023-04-24] MEDS: buprenorphine-naloxone 4-1 mg Film 2 EACH SUBLINGUAL (08:52)
--- NOTE | 2023-04-24 11:41 | ANE.PACU2 ---
Inpatient post-anesthesia follow up: Airway intact: Yes Vital signs: Temperature 98.0 F Pulse Rate 74 Respiratory Rate 18 Blood Pressure 141/83 Pulse Oximetry 98 Oxygen Delivery Me thod Room Air Oxygen Flow Rate Fraction of Inspir ed Oxygen Hydration adequate: Yes Nausea and vomiting: No Pain level: 2 Mental status: Baseline
== END 2023-04-24 16:00 | disposition home or self-care (01) | DRG 797 ==
LOC: OPOB 04-23 01:42 → OBGYN 04-23 01:42
PROVIDERS: Admitting Provider Family Medicine; PCP Nurse Practitioner Family; Visit Provider Family Medicine
PROC: 0UB70ZZ Excision of Bilateral Fallopian Tubes, Open Approach (ICD-10-PCS; CPT 58605; principal; 2023-04-24 07:00)
DX: O99.824 Streptococcus B carrier state complicating childbirth (principal); F11.20 Opioid dependence, uncomplicated; Z37.0 Single live birth; O98.42 Viral hepatitis complicating childbirth; B19.20 Unspecified viral hepatitis C without hepatic coma; O99.324 Drug use complicating childbirth; Z3A.39 39 weeks gestation of pregnancy; Z30.2 Encounter for sterilization
CPT/HCPCS: 36415; 51702; 58605; 59025; 59409; 80306; 83986; 85025; 85027; 88302; 96374; 96376; 99211; J0330; J0573; J0690; J1100; J2405; J2704; J2765; J2795; J3010; J3490; J7120; J7121

== ENCOUNTER 2025-08-01 10:22 | Emergency (ER) | payer BC, MEDICAID, SELFPAY ==
[2025-08-01 10:19] VITALS: BP 145/111; PULSE 76; RESP 16; TEMP 36.3; O2SAT 96; BMI 26.6
--- NOTE | 2025-08-01 10:26 | CT_ITS ---
WS: [id number] CT scan of the head, 08/01/2025 Clinical Data: Symptoms of acute stroke Comparison: CT head, 12/18/2013 DLP: 1041.[address] scans at [facility] use at least one of these dose optimization techniques: automated exposure control; mA and/or kV adjustment per patient size (includes targeted exams where dose is matched to clinical indication); or iterative reconstruction. Findings: The ventricular system is normal without shift. No recent infarct or hemorrhage is seen. There are no abnormal intracerebral masses. The cerebellum and brainstem are not remarkable. Bony windows of the skull and skull base show no fractures or erosions. The mastoid air cells, internal auditory canals, sella turcica, intraorbital contents, and paranasal sinuses are unremarkable. CT/CT head thrombolytic 35363 Impression: Negative CT scan of the head
--- NOTE | 2025-08-01 10:26 | ECG_ITS ---
[facility]: [facility]01 Pat Name: Juliann Mckeon Department: Room: Gender: Female Electrical System Specialist: : 1990 Requested By: Darren Alvares Order Number: [id number] Reading MD: Measurements Intervals [place] Rate: 68 P: 56 NM: 153 QRS: 37 QRSD: 79 T: 64 QT: 413 QTc: 441 Interpretive Statements SINUS RHYTHM POSSIBLE RIGHT VENTRICULAR CONDUCTION DELAY [RSR (QR) IN V1/V2] [email or web address]
--- NOTE | 2025-08-01 10:26 | W.ED.NEUROSD ---
HPI - Neuro Symptoms/Deficit General: Chief Complaint: Neuro Symptoms/Deficit Stated Complaint: LEFT SIDE WEAKNESS Time Seen by Provider: 08/01/25 10:25 History of Present Illness: 34-year-old female brought to the emergency room as a stroke alert. She got up swelling was her normal self went to work and then began to have left-sided weakness. Patient initially seen in the CT suite. Initial NIH scoring done there. Associated symptoms: Deny chest pain Related Data Home Medications ?Medication ?Instructions ?Recorded ?Confirmed buprenorphine HCl 8 mg sublingual 8 mg sublingual BID 09/30/20 08/01/25 tablet clonazepam 0.5 mg tablet 0.5 mg PO TID PRN Anxiety 08/01/25 08/01/25 fluoxetine 20 mg capsule 20 mg PO DAILY 08/01/25 08/01/25 Allergies Allergy/AdvReac Type Severity Reaction Status Date / Time cephalexin (From Keflex) Allergy Unknown ALGY-Hives Verified 08/01/25 10:30 Penicillins Allergy Unknown ALGY-Hives Verified 08/01/25 10:30 Review of Systems Const: Denies: fever(s) or chills Card: Denies: chest pain Resp: Denies: dyspnea GI: Denies: abdominal pain : Denies: dysuria, urinary frequency or urinary urgency Musc: Denies: neck pain or back pain Skin/Breast: Denies: rash PFSH ED PFSH: Social History Smoking and tobacco/nicotine status: current every day tobacco/nicotine user cigarettes Years cigarettes smoked: 17 Quit status (tobacco/nicotine): has tried quititng Number of times tried to quit tobacco: 7 Second hand smoke exposure: Yes Substance/Drug Use: current Substance/Drug use frequency: daily NIH stroke score NIHSS: Level Of Consciousness - 1a: 0 Level Of Consciousness Questions - 1b: Both Correct Level Of Consciousness Commands - 1c: Both Correct Best Gaze - 2: Normal Visual [place] - 3: No Visual Loss Facial Palsy - 4: Normal Motor Arm Right - 5: No Drift Motor Arm Left - 5: No Drift Motor Leg Right - 6: No Drift Motor Leg Left - 6: Effort Against [place] Limb Ataxia - 7: Absent Sensory - 8: Mild To Moderate Loss Best Language - 9: No Aphasia Dysarthia - 10: Normal Extinction And Inattention - 11: 0 Score: Total Score: 3 Physical Exam Const: COMMON NORMALS: no acute distress GENERAL APPEARANCE: cooperative and comfortable ORIENTATION/CONSCIOUSNESS: Yes awake, Yes oriented to person, Yes oriented to place and Yes oriented to time HENMT: COMMON NORMALS: normocephalic, atraumatic and hearing grossly normal bilaterally HEAD & SCALP: normocephalic and atraumatic Resp: COMMON NORMALS: normal respiratory effort, No retractions, No use of accessory muscles and clear to auscultation bilaterally AUSCULTATION: clear to auscultation bilaterally Cardio: COMMON NORMALS: regular rate, regular rhythm and No murmurs present (Cardio) RATE: regular rate RHYTHM: regular rhythm GI: COMMON NORMALS: Soft to palpation and No hepatosplenomegaly present AUSCULTATION: Yes normoactive bowel sounds PALPATION: Yes Soft to palpation, No Tenderness to palpation present (GI), No Guarding due to palpation present (GI) and Yes No hepatosplenomegaly present Extremity: COMMON NORMALS: normal to inspection, capillary refill normal, no clubbing, cyanosis or edema, no calf tenderness and no pedal edema Neuro: SENSORIUM/ORIENTATION: Yes oriented to person, Yes oriented to place and Yes oriented to time Skin: COMMON NORMALS: no rashes or lesions noted GENERAL SKIN EXAM: no rashes or lesions noted Course Vital Signs: Vital signs: Vital Signs Temperature 97.4 F L 08/01/25 10:19 Pulse Rate 67 08/01/25 13:32 Respiratory Rate 16 08/01/25 10:19 Blood Pressure 148/85 08/01/25 13:32 Pulse Oximetry 100 08/01/25 13:32 Oxygen Delivery Me thod Room Air 08/01/25 12:59 MDM - Neuro Symptoms/Deficit Medical Decision Making Medical decision making Social determinants: History of substance abuse I reviewed the patient's medical record. I reviewed the patient's current home meds. Alternate historians: None Differential diagnosis: TIA CVA history of substance abuse conversion disorder Lab Review: Labs reviewed CBC normal PT PTT normal mild hypokalemia potassium 3.3 remainder of her chemistries are normal. Urine shows equal number of white blood cells and squamous cells. Patient did not complain of cystitis. Urine tox cream positive for amphetamines which patient endorses having used recently. Imaging: CT head no acute findings discussed with radiology Assessment of risk Level of risk: Moderate Hospitalization considerations: Initial evaluation plan to complete stroke workup patient may require hospitalization pending results Reexamination: All of her symptoms have completely resolved. She has returned to baseline. Assessment and plan: Discussed findings with the patient. Her initial stroke score was 3 on the NIH scale however it is very inconsistent with a stroke and asymmetrical. Involves both her left and her right sides. Patient does admit to recent methamphetamine use. No evidence of stroke or TIA I believe her symptoms are related to her methamphetamine use will discharge patient home encouraged her to seek assistance with her methamphetamine use outpatient facility can also follow-up with [facility] [place] where they can help her engage available resources. Should also follow-up with her primary care doctor regarding her blood pressure was elevated at times suspect this is also related to substance abuse. Lab Data 08/01/25 10:36 08/01/25 10:[address] 08/01/25 10:26 Impression: Negative CT scan of the head Laboratory Results WBC 4.75 10^3/uL (3.29-11.43) 08/01/25 10:36 RBC 4.84 10^6/uL (3.85-5.65) 08/01/25 10:36 Hgb 13.20 g/dL (11.27-16.99) 08/01/25 10:36 Hct 40.9 % (36-47) 08/01/25 10:36 MCV 84.5 fl (85-98) L 08/01/25 10:36 MCH 27.3 pg (27-33) 08/01/25 10:36 MCHC 32.3 g/dL (30-55) 08/01/25 10:36 RDW 14.4 % (12.1-15.1) 08/01/25 10:36 Plt Count 276 10^3/cmm (157-399) 08/01/25 10:36 MPV 10.1 fL (7.4-10.4) 08/01/25 10:36 Neut % (Auto) 53.1 % 08/01/25 10:36 Lymph % (Auto) 35.6 % 08/01/25 10:36 [place] % (Auto) 6.5 % 08/01/25 10:36 Eos % (Auto) 4.2 % 08/01/25 10:36 Baso % (Auto) 0.6 % 08/01/25 10:36 Neut # (Auto) 2.52 10^3/uL (1.8-7.7) 08/01/25 10:36 Lymph # (Auto) 1.7 10^3/uL (0.8-4.8) 08/01/25 10:36 [place] # (Auto) 0.3 10^3/uL (0.2-0.9) 08/01/25 10:36 Eos # (Auto) 0.2 10^3/uL (0.0-0.8) 08/01/25 10:36 Baso # (Auto) 0.0 10^3/uL (0.0-0.1) 08/01/25 10:36 Nucleated RBC % (auto) 0 % 08/01/25 10:36 Nucleated RBCs # 0.0 /100WBC 08/01/25 10:36 PT 12.50 SECONDS (12.1-14.9) 08/01/25 10:36 INR 0.87 (0.8-1.2) 08/01/25 10:36 APTT 26.0 SECONDS (23.9-36.7) 08/01/25 10:36 Sodium 140 mmol/L (136-145) 08/01/25 10:36 Potassium 3.3 mmol/L (3.5-5.1) L 08/01/25 10:36 Chloride 100 mmol/L (98-107) 08/01/25 10:36 Carbon Dioxide 30 mmol/L (22-29) H 08/01/25 10:36 Anion Gap 13.3 (5-19) 08/01/25 10:36 BUN 11 mg/dL (6-20) 08/01/25 10:36 Creatinine 0.7 mg/dL (0.5-0.9) 08/01/25 10:36 GFR Calculation 95.8 mL/min (90-130) 08/01/25 10:36 Glucose 103 mg/dL (65-115) 08/01/25 10:36 Calculated Osmolality 290 mOsm/kg (285-295) 08/01/25 10:36 Calcium 9.7 mg/dL (8.5-10.5) 08/01/25 10:36 Total Bilirubin 0.6 mg/dL (0.15-1.2) 08/01/25 10:36 AST 23 U/L (0-32) 08/01/25 10:36 ALT 26 U/L (0-33) 08/01/25 10:36 Alkaline Phosphatase 64 U/L (35-105) 08/01/25 10:36 Total Protein 7.5 g/dL (6.6-8.7) 08/01/25 10:36 Albumin 4.6 g/dL (3.5-5.2) 08/01/25 10:36 Globulin 2.9 g/dL (1.3-4.6) 08/01/25 10:36 Urine Color Yellow (Yellow) 08/01/25 12:57 Urine Appearance Turbid (CLEAR) A 08/01/25 12:57 Urine pH 7.5 (5-7) 08/01/25 12:57 Ur Specific [place] 1.018 (1.005-1.030) 08/01/25 12:57 Urine Protein Negative (Negative) 08/01/25 12:57 Urine Glucose (UA) Negative (Normal) 08/01/25 12:57 Urine Ketones Negative (Negative) 08/01/25 12:57 Urine Blood Negative (Negative) 08/01/25 12:57 Urine Nitrate Negative (Negative) 08/01/25 12:57 Urine Bilirubin Negative (Negative) 08/01/25 12:57 Urine Urobilinogen 1.0 mg/dL (Negative) 08/01/25 12:57 Ur Leukocyte Esterase Trace (Negative) A 08/01/25 12:57 Urine RBC 0-2 /hpf (0-2) 08/01/25 12:57 Urine WBC 6-10 /hpf (0-5) 08/01/25 12:57 Ur Squamous Epith Cells 6-10 /hpf (0-5) 08/01/25 12:57 Amorphous Sediment Not Reportable 08/01/25 12:57 Urine Bacteria Trace /hpf (NONE) 08/01/25 12:57 Hyaline Casts 0-4 /lpf H 08/01/25 12:57 Urine Opiates Screen Negative ng/mL (Negative) 08/01/25 12:57 Ur Barbiturates Screen Negative ng/mL (Negative) 08/01/25 12:57 Ur Phencyclidine Scrn Negative ng/mL (Negative) 08/01/25 12:57 Ur Amphetamines Screen Positive ng/mL (Negative) H 08/01/25 12:57 U Benzodiazepines Scrn Negative ng/mL (Negative) 08/01/25 12:57 Urine Cocaine Screen Negative ng/mL (Negative) 08/01/25 12:57 U Marijuana (THC) Screen Negative ng/mL (Negative) 08/01/25 12:57 All radiology interpretation(s) finalized by discharge Discharge Plan Discharge Patient Disposition: Home Clinical Impression: Methamphetamine use, HTN (hypertension) Condition: Stable Prescriptions: No Action buprenorphine HCl 8 mg Tablet, Sublingual 8 mg SUBLINGUAL BID clonazepam 0.5 mg tablet 0.5 mg PO TID PRN (Reason: Anxiety) fluoxetine 20 mg capsule 20 mg PO DAILY Discharge Orders: Discharge ED (Routine); Ordered 08/01/25 Ordered By: Darren Buckner Referrals: Peña Ritter FNP [Nurse Practitioner, Family Practice] Discharge Diet: Usual diet Discharge Activity: Increase activity as tolerated Patient Instructions: Opioid Safety, Pain Management, Patient Portal & [place] Instructions Activity Restrictions/Additional Instructions: Thank you for choosing [facility] for your healthcare needs today. It is very important that you follow up as instructed or that you return to the Emergency Department should you have concerns or if your condition changes or worsens in any way. Emergency department visits are focused on emergent conditions, in some cases you may require further evaluation on an outpatient basis. You were seen in the emergency room with complaints of weakness and left-sided symptoms. On your evaluation your exam did not indicate a stroke CT of your head was negative. Your blood pressure was elevated which responded to treatment. We did note methamphetamines in your urine drug screen. You are not having any further focal neurologic symptoms at this time we will discharge you home and have you follow-up with your primary care doctor to manage your blood pressure. (Please note that included in your discharge packet is information concerning opioid safety and pain management. This information is given to all patients were discharged from the ER regardless of their discharge diagnosis or the medicines they usually take or are prescribed.) Print Language: Spanish Coding Level of Care Code ED Filament Welder for Nilda Cannon
[2025-08-01 10:40] LABS: Hematocrit 40.9 % (36-47); Hemoglobin 13.20 g/dL (11.27-16.99); Mean Corpuscular HGB Conc 32.3 g/dL (30-55); Mean Corpuscular Hemoglobin 27.3 pg (27-33); Mean Corpuscular Volume 84.5 fl (85-98); Nucleated Red Blood Cells % 0 %; Platelet Count 276 10^3/cmm (157-399); Red Blood Count 4.84 10^6/uL (3.85-5.65); White Blood Count 4.75 10^3/uL (3.29-11.43)
--- OUTSIDE RECORDS SUMMARY | 2025-08-01 10:44 | XMS_ITS | Encounter Summary ---
Author Organization [facility] Address [address] [place] [address] Care Team Providers Care Store Promoter Name Role Phone Abeba Mas DO Primary Care Provider [phone] Encounter Details Date Type Department Care Team (Late st Contact Info) Description 07/29/2025 External Device Data [facility]STRACTION Provider, Abstract NO ADDRESS ON FILE Social History Tobacco Use Types Packs/Day Years Used Date Smoking Tobacco: Every Day Cigarettes Passive Smoke Exposure: Current Smokeless Tobacco: Never Comments:Quit smoking: Has d ecreased to 5ppd Alcohol Use Standard Drinks/Week Comments Yes 0 (1 standard drink = 0.6 oz pur e alcohol) Comments No Sex and Gender Information Value Date Recorded Sex Assigned at Not on file 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
--- OUTSIDE RECORDS SUMMARY | 2025-08-01 10:44 | XMS_ITS | Clinical Summary ---
Author Organization [facility] Address [address] [place]: Epic Prelude ADT PRISCILLA GUERRERO [id number] Care Team Providers Care Studio Musician Name Role Phone Abeba Mas Primary Care Provider Allergies Active Allergy Reactions Criticality Noted Date Comments Cephalexin Hives,Swelling High 02/01/2010 Family is severely allergic to this also, swelling, hives. Pt has never received this medication because of family history. Penicillins Hives,Swelling High 02/01/2010 Pt's mother, father, and maternal uncle are very allergic to penicillin., Difficulty breathing, hives, sick for weeks afterward. Medications citalopram 20 mg tablet Take 20 mg by mouth daily at bedtime. Active buprenorphine HCL [address] 8 mg under tongue 3 times daily. Active ARIPiprazole (ABILIFY) 2 mg tablet Take 2 mg by mouth daily. 3 Active docusate sodium (COLACE) 100 mg capsule TAKE 1 CAPSULE BY MOUTH TWICE DAILY AT BEDTIME NEEDED FOR CONSTIPATION 3 Active Narcan 4 mg/actuation [place], Non-Aerosol CALL 911. SPR CONTENTS OF ONE SPRAYER (0.1ML) INTO ONE NOSTRIL. REPEAT IN 2-3 MIN IF SYMPTOMS OF OPIOID EMERGENCY PERSIST, ALTERNATE NOSTRILS 3 Active clonazePAM (KlonoPIN) 0.5 mg Tablet Take 0.5 mg by mouth 2 times daily. Active FLUoxetine (PROzac) 20 mg tablet Take 20 mg by mouth daily. 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 Chronic pain of both knees 09/15/2017 Patellofemoral pain syndrome of both knees 09/15 Bilateral carpal tunnel syndrome 09/15/2017 History of drug abuse 04/11/2012 JAMA (generalized anxiety disorder) 04/11/2012 Tobacco abuse 02/07/2010 Hepatitis C 02/02/2010 Resolved Problems Problem Noted Date Diagnosed Date Resolved Date Depression 04/11/2012 09/15/2017 Contraception management 04/11/201209/2017 GERD (gastroesophageal reflux disease) 09/26/2011 04/05/2012 Family circumstance 08/31/2011 09/15/19 18 Overview (12/09/2020): Does not have custody of oldest child in [place] Depression 09/06/2010 08/31/2011 Hyperemesis gravidarum, antepartum 03/13/2010 06/24/2010 Papanicolaou smear of cervix with low grade squamous intraepithelial lesion (LGSIL) 02/26/2010 09/18/2011 Chlamydia infection, current 02/20/2010 04/19/2010 Overview (12/09/2020): Will need ZOHREH Supervision of other normal 02/07/2010 04/05/2012 GERD (gastroesophageal reflux disease) 02/07/2010 08/29/2011 Encounters Date Type Department Care Team Description 07/29/2025 External Device Data [facility] ABSTRACTION Provider, Abstract 07/15/2025 External Device Data [facility] ABSTRACTION Provider, Abstract from Last 3 Months Immunizations Immunization Administration Dates Next Due (ADACEL/BOOSTRIX)(10 YR UP) TDAP VACCINE, 0.5ML, IM 01/17/2012 (M-M-R II/PRIORIX)(12 MO UP) MEASLES, MUMPS AND RUBELLA VIRUS VACCINE, 0.5 ML IM/SUBCUT 04/16/1999,12/13/1995,05/21/1992 (TDVAX)(7 YRS UP) TETANUS AN D DIPHTHERIA TOXOIDS, ADSORBED (2 LF OF TETANUS TOXOID AND 2 LF OF DIPHTHERIA TOXOID), 0.5ML (PF), IM 04/02/2004 Dt Dtp Dtap Vaccine 12/13/1995, 5,05/21/1992,1990,02/05/1991 HIB, Unspecified Formulation 05/21/1992,12/25/18 92,05/09/1991 Hepatitis B Vaccine 08/29/1995,05/10/1995,1994 IPV/OPV 04/16/1999, 6,05/21/1992,1991,05/09/1991 Influenza Vaccine Split 3+ Yrs PF IM 08/18/2011, 07/20/2010 Family History Medical History Relation Name Comments Healthy Brother 1 Healthy Brother 2 Healthy Brother 3 Healthy Father Healthy Maternal Grandmother Liver Disease Mother Hep C Healthy Paternal Grandmother Healthy Sister 1 Healthy Sister 2 Healthy Sister 3 Healthy Son Relation Name Status Comments Brother 1 Alive Brother 2 Alive Brother 3 Alive Father Alive Maternal Grandfather Maternal Grandmother Alive Mother Alive Paternal Grandfather Paternal Grandmother Alive Sister 1 Alive Sister 2 Alive Sister 3 Alive Son Alive Social History Tobacco Use Types Packs/Day Years Used Date Smoking Tobacco: Every Day Cigarettes Passive Smoke Exposure: Current Smokeless Tobacco: Never Tobacco Cessation:Ready to Q uit: No; Counseling Given: Yes Comments:Quit smoking: Has decreased to 5ppd Alcohol Use Standard Drinks/Week Comments Yes 0 (1 standard drink = 0.6 oz pur e alcohol) Comments No Sex and Gender Information Value Date Recorded Sex Assigned at Not on file Legal Sex 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 ARTIST Gender Identity Not on file Sexual Orientation Not on file Last Filed Vital Signs Vital Sign Reading Time Taken Comments Blood Pressure 122/80 03/14/2025 4:49 PM CDT Pulse 89 03/14/2025 4:49 PM CDT Temperature 36.6 C (97.8 F) 03/14/2025 4:49 PM CDT Respiratory Rate 18 03/14/2025 4:49 PM CDT Oxygen Saturation 98% 03/14/2025 4:49 PM CDT Inhaled Oxygen Concentration - - Weight 74.4 kg (164 lb) 03/14/2025 4:49 PM CDT Height 167.6 cm (5' 6 ) 03/14/2025 4:49 PM CDT Body Mass Index 26.47 03/14/2025 4:49 PM CDT Plan of Treatment Health Maintenance Due Date Last Done Comments Preventative Visit-Managed Medicaid 2009 HPV/Cotest (21-29) 12/07/2011 CERVICAL CANCER SCREENING 2020 HPV/Cotest (30-65) 2020 PAP SMEAR 2020 INFLUENZA VACCINE (#1) 2025 6, 08/18/2011, 07/20/2010 DTAP/TDAP/TD VACCINES (8 - T d or Tdap) 03/21/2029 03/21/2019, 01/17/2012, 04/02/2004, Additional history exists HEPATITIS B VACCINES Completed 08/29/1995, 08/29/1995, 05/10/1995, Additional history exists HPV VACCINES (No Doses Required) Completed Insurance [facility] MEDICAID Care Teams Studio Musician Relationship Specialty Start Date End Date Abeba Mas DO [address] [place] [phone] PCP - General Family Practice 08/16/22
--- OUTSIDE RECORDS SUMMARY | 2025-08-01 10:44 | XMS_ITS | Data Portability ---
Author Organization PRISCILLA Romo [facility], LJanettROCAEL [facility], ROSWELLSondra [facility] Address [address] [address] Care Team Providers Care Medical Videographer Name Role Phone HARVEYMARTHA Primary Care Provider Assessment Encounter Date Assessment Date Assessment LastModified by Organization Details LastModified Time 03/09/2023 03/09/2023 Glucose screen t o be done next week. We discussed the risks and alternatives to a tubal ligation. We discussed the risks of bleeding, infection and damage to intraabdominal organs. We also discussed the increased risk of ectopic and a chance to become again despite a successful tubal ligation. Not available 03/09/2023 16:19:05 03/20/2023 03/20/2023 She admitted to using amphetamine 1 time but assures me she hasn't used it since and her urine should be negative moving forward. We had an in depth discussion regarding the importance of being clean. Not available 03/20/2023 10:43:38 Plan of Treatment Reminders Order Date Submit Date Provider Last Modified By Organization Details Last Modified Time Details Appointments None record ed. Lab drug screen , urine 2022 023 [facility], 800 [facility] [address], [address] [place], [address], 17:47:05 drug screen , urine 2022 023 [facility], 800 [facility] 248, [address] [place], [address], 3 23:34:51 strept ococcu s group B, cultur e, unspec ified specim en 2022 023 CISCOJ [employer] [facility], [address] [facility] 248, [address] C, [place], [address], 3 23:28:34 drug screen , urine 2022 023 CISCOJ [employer] [facility], [address] [place] [address] 248, [address] C, [place], [address], 3 23:28:33 drug test, urine 2022 023 [facility] [address] [place] [address] 248, [address] C, [place], [address], 3 11:06:22 HIV 1+2 Ab + HIV1 p24 Ag, quanti tative immuno assay, serum 2022 023 [facility]CO [facility], [address] [place] [address] 248, [address] C, [place], [address], 3 04:53:02 hepati tis C Ab, serum 2022 023 [facility], [address] [place] [address] 248, [address] C, [place], [address], 3 16:14:13 chlamy erum + gonorr hea DNA panel, unspec ified specim en 2022 023 [employer] [facility], [address] [place] [address] 248, [address] C, [place], [address], 3 16:14:11 drug test, urine 2022 023 [employer] [facility], [address] [place] [address] 248, [address] C, [place], [address], 3 16:14:18 blood group antibo dy invest igatio n, plasma or RBC 2022 023 [facility], [address] [place] [address] 248, [address] C, [place], [address], 3 16:14:09 HBsAg (hepat itis B surfac e Ag), serum 2022 023 [facility], [address] [place] [address], [address], [place], [address], 3 04:53:01 rubell a Ab, serum 2022 023 [facility], [address] [place] [address], [address], [place], [address], 3 16:14:16 cultur e (colon y count) , urine 2022 023 [facility], [address] [place] [address] 248, [address] C, [place], [address], 3 16:14:17 RPR (rapid plasma reagin ), serum 2022 023 [facility], [address] [place] [address], [address], [place], [address], 3 04:53:03 abo group + rh type, blood 2022 023 [facility], [address] [place] [address], [address], [place], [address], 3 04:53:04 CBC 2022 023 [facility] [address] [place] [address], [address], 5 11:37:25 urinal ysis, comple te 2022 023 [email or web address] [facility] ([facility]), [address] [place], [address], 5 11:37:13 glucos e tolera nce test, gestat ional, 1-hour 2022 023 [email or web address] [email or web address] [facility], [address] [address], [address], [place], [address], 16:26:26 Referral ENT surger y referr al 2022 023 [email or web address] Micheal Corona MD, [address] , [place], [address], 3 15:30:04 Procedures None record ed. Surgeries None record ed. Imaging None record ed. Medication Orders None record ed. Patient TargetsNo targets recorded. Patient Instructions Encounter Date Encounter Id Patient Instructions Last Modified By Organization Details Last Modified Time 03/20/2023 [id number] [email or web address] Not available 02/2023 10:38:09 Reason for Referral ENT Surgery Referral for Mas s of neck Referring Physician: Martha Heard, Family Medicine, Encounter Date: 03/20/2023 Results Created Date Observation Date Name Description Value Unit Range Abnormal Flag Note LastModifiedBy Organization Detail LastModifiedTime 03/20/2003/20/2023 CBC WBC 7.4 x10 4.0-10 .5 Not Available [facility] [address], [place], [address], 03/20/2023 12:25:31 03/20/20 23 03/20/2023 CBC RBC 3.86 x10 3.50-5 .50 Not Available [facility] [address], [place], [address], 03/20/2023 12:25:31 03/20/20 23 03/20/2023 CBC HGB 11.6 g/dL 12.0-1 6.0 low Not Available [facility] [address], [place], [address], 03/20/2023 12:25:31 03/20/20 23 03/20/2023 CBC HCT 34.0 % 37.0-4 7.0 low Not Available [facility] [address], [place], [address], 03/20/2023 12:25:31 03/20/20 23 03/20/2023 CBC MCV 88.2 fL 80.0-9 9.9 Not Available [facility] [address], [place], [address], 03/20/2023 12:25:31 03/20/20 23 03/20/2023 CBC MCH 30.1 pg 27.0-3 2.0 Not Available [facility] [address] [facility] 1, [place], [address], 03/20/2023 12:25:31 03/20/20 23 03/20/2023 CBC MCHC 34.2 g/dL 32.0-3 6.0 Not Available [facility] [address], [place], [address], 03/20/2023 12:25:31 03/20/20 23 03/20/2023 CBC RDW 13.9 % 11.5-1 4.6 Not Available [facility] [address], [place], [address], 03/20/2023 12:25:31 03/20/20 23 03/20/2023 CBC plt 224.2 x10 140.0- 451.0 Not Available [facility] [address], [place], [address], 03/20/2023 12:25:31 03/20/20 23 03/20/2023 CBC lymphocytes % 24.7 % 20.0-5 0.0 Not Available [facility] [address] [facility] 1, [place], [address], 03/20/2023 12:25:31 03/20/20 23 03/20/2023 CBC granulcytes % 64.9 % 30.0-7 0.0 Not Available [facility] [address] [facility] 1, [place], [address], 03/20/2023 12:25:31 03/20/20 23 03/20/2023 CBC monocytes % 8.0 % 2.0-10 .0 Not Available [facility] [address] [facility] 1, [place], [address], 03/20/2023 12:25:31 03/20/20 23 03/20/2023 CBC granulcytes# 4.8 x10 Not Lupis ilable [facility] [address] [facility] 1, [place], [address], 03/20/2023 12:25:31 03/20/20 23 03/20/2023 CBC lymphocytes # 1.8 x10 Not Available [facility] [address] [facility] 1, [place], [address], 03/20/2023 12:25:31 03/20/20 23 03/20/2023 CBC monocytes # 0.6 x10 Not Avai lable [facility] [address] [facility] 1, [place], [address], 03/20/2023 12:25:31 03/20/20 23 03/20/2023 GLUCO SE SCREE N glucose screen 114.0 mg/dL panic high Not Available [facility] [address] [facility] 1, [place], [address], 03/20/2023 13:46:24 03/09/20 23 03/10/2023 URINA LYSIS , COMPL ETE color DARK YELLOW yellow normal Not Available [facility] [address] [address] [place], [address], 03/10/2023 04:52:59 03/09/20 23 03/10/2023 URINA LYSIS , COMPL ETE appearance CLEAR clear normal Not Available [address] [address] [place], [address], 03/10/2023 04:52:59 03/09/2003/10/2023 URINA LYSIS , COMPL ETE specific gravity 1.024 1.001- 1.035 normal Not Available [address], [address], 03/10/2023 04:52:59 03/09/20 23 03/10/2023 URINA LYSIS , COMPL ETE pH 6.5 5.0-8. 0 normal Not Available [address] [address] [place], [address], 03/10/2023 04:52:59 03/09/20 23 03/10/2023 URINA LYSIS , COMPL ETE glucose NEGATI VE negati ve normal Not Available [address] [address] [place], [address], 03/10/2023 04:52:59 03/09/20 23 03/10/2023 URINA LYSIS , COMPL ETE bilirubin NEGATI VE negati ve normal Not Available [facility] [address] [place], [address], 03/10/2023 04:52:59 03/09/20 23 03/10/2023 URINA LYSIS , COMPL ETE ketones NEGATI VE negati ve normal Not Available [facility] [address] [place], [address], 03/10/2023 04:52:59 03/09/20 23 03/10/2023 URINA LYSIS , COMPL ETE occult blood NEGATI VE negati ve normal Not Available [address], [address], 03/10/2023 04:52:59 03/09/20 23 03/10/2023 URINA LYSIS , COMPL ETE protein NEGATI VE negati ve normal Not Available [address], [address], 03/10/2023 04:52:59 03/09/20 23 03/10/2023 URINA LYSIS , COMPL ETE nitrite NEGATI VE negati ve normal Not Available [address], [address], 03/10/2023 04:52:59 03/09/20 23 03/10/2023 URINA LYSIS , COMPL ETE leukocyte esterase NEGATI VE negati ve normal Not Available [address], [address], 03/10/2023 04:52:59 03/09/20 23 03/10/2023 URINA LYSIS , COMPL ETE WBC NONE SEEN /hpf < or = 5 normal Not Available [address], [address], 03/10/2023 04:52:59 03/09/20 23 03/10/2023 URINA LYSIS , COMPL ETE RBC NONE SEEN /hpf < or = 2 normal Not Available [address], [address], 03/10/2023 04:52:59 03/09/20 23 03/10/2023 URINA LYSIS , COMPL ETE squamous epithelial cells 0-5 /hpf < or = 5 Not Available [facility] [address], [address], 03/10/2023 04:52:59 03/09/20 23 03/10/2023 URINA LYSIS , COMPL ETE bacteria NONE SEEN /hpf none seen normal Not Available [address], [address], 03/10/2023 04:52:59 03/09/20 23 03/10/2023 URINA LYSIS , COMPL ETE hyaline cast NONE SEEN /lpf none seen normal Not Available [facility] [address], [address], 03/10/2023 04:52:59 03/09/20 23 03/10/2023 CBC (INCL UDES DIFF/ PLT) white blood cell count 9.0 thous and/u L 3.8-10 .8 normal Not Available [address], [address], 03/10/2023 07:27:24 03/09/20 23 03/10/2023 CBC (INCL UDES DIFF/ PLT) red blood cell count 3.95 shay on/uL 3.80-5 .10 normal Not Available [address], [address], 03/10/2023 07:27:24 03/09/20 23 03/10/2023 CBC (INCL UDES DIFF/ PLT) hemoglobin 11.3 g/dL 11.7-1 5.5 low Not Available [address], [address], 03/10/2023 07:27:24 03/09/20 23 03/10/2023 CBC (INCL UDES DIFF/ PLT) hematocrit 34.6 % 35.0-4 5.0 low Not Available [address], [address], 03/10/2023 07:27:24 03/09/20 23 03/10/2023 CBC (INCL UDES DIFF/ PLT) MCV 87.6 fL 80.0-1 00.0 normal Not Available [address], [address], 03/10/2023 07:27:24 03/09/20 23 03/10/2023 CBC (INCL UDES DIFF/ PLT) MCH 28.6 pg 27.0-3 3.0 normal Not Available [address], [address], 03/10/2023 07:27:24 03/09/20 23 03/10/2023 CBC (INCL UDES DIFF/ PLT) MCHC 32.7 g/dL 32.0-3 6.0 normal Not Available [address], [address], 03/10/2023 07:27:24 03/09/20 23 03/10/2023 CBC (INCL UDES DIFF/ PLT) RDW 13.2 % 11.0-1 5.0 normal Not Available [address], [address], 03/10/2023 07:27:24 03/09/20 23 03/10/2023 CBC (INCL UDES DIFF/ PLT) platelet count 181 thous and/u L 140-40 0 normal Not Available [address], [address], 03/10/2023 07:27:24 03/09/20 23 03/10/2023 CBC (INCL UDES DIFF/ PLT) MPV 11.2 fL 7.5-12 .5 normal Not Available [address], [address], 03/10/2023 07:27:24 03/09/20 23 03/10/2023 CBC (INCL UDES DIFF/ PLT) absolute neutrophils 6507 cells /uL 1500-7 800 normal Not Available [address], [address], 03/10/2023 07:27:24 03/09/20 23 03/10/2023 CBC (INCL UDES DIFF/ PLT) absolute lymphocytes 1656 cells /uL 850-39 00 normal Not Available [address], [address], 03/10/2023 07:27:24 03/09/20 23 03/10/2023 CBC (INCL UDES DIFF/ PLT) absolute monocytes 540 cells /uL 200-95 0 normal Not Available [address], [address], 03/10/2023 07:27:24 03/09/20 23 03/10/2023 CBC (INCL UDES DIFF/ PLT) absolute eosinophils 270 cells /uL 15-500 normal Not Available [address], [address], 03/10/2023 07:27:24 03/09/20 23 03/10/2023 CBC (INCL UDES DIFF/ PLT) absolute basophils 27 cells /uL 0-200 normal Not Available [address], [address], 03/10/2023 07:27:24 03/09/20 23 03/10/2023 CBC (INCL UDES DIFF/ PLT) neutrophils 72.3 % normal Not Available [address], [address], 03/10/2023 07:27:24 03/09/20 23 03/10/2023 CBC (INCL UDES DIFF/ PLT) lymphocytes 18.4 % normal Not Available [address], [address], 03/10/2023 07:27:24 03/09/20 23 03/10/2023 CBC (INCL UDES DIFF/ PLT) monocytes 6.0 % normal Not Available [address], [address], 03/10/2023 07:27:24 03/09/20 23 03/10/2023 CBC (INCL UDES DIFF/ PLT) eosinophils 3.0 % normal Not Available [address], [address], 03/10/2023 07:27:24 03/09/20 23 03/10/2023 CBC (INCL UDES DIFF/ PLT) basophils 0.3 % normal Not Available [facility] [address] [place], [address], 03/10/2023 07:27:24 03/09/20 23 03/10/2023 HEPAT ITIS B SURFA CE ANTIG EN W/REF L CONFI RM hepatitis B surface antigen NON-RE ACTIVE non-re active normal For addit ional infor sterling mauricio, edith e refer to http: //[facility] mauricio.que stdia gnost ics.c om/fa q/FAQ (This link is being provi ded for infor sterling velazquez/ educa suzanna l purpo ses only. ) Not Available [address], [address], 03/10/2023 07:27:25 03/09/20 23 03/10/2023 HEPAT ITIS C AB W/REF L TO HCV RNA, QN, PCR hepatitis C antibody REACTI VE non-re active abnormal Based on this resul t, the sampl e will be teste d for HCV RNA by a Nucle ic Acid Ampli ficat ion Test (NAAT ) to deter mine if the patie nt has a curre nt activ e infec tion. Not Available [address], [address], 03/10/2023 07:27:26 03/09/20 23 03/10/2023 RUBEL LA AB (IGG) , IMMUN E STATU S rubella Ab (IgG), immune status 1.29 index normal Index Inter preta tion ----- ----- ----- ---- <0.90 Not consi stent with immun ity 0.90- 0.99 Equiv ocal > or = 1.00 Consi stent with immun ity The prese nce of rubel la IgG antib marni sugge sts immun izati on or past or curre nt infec tion with rubel la virus . Not Available [email or web address] [address], [place], [address], 03/10/2023 14:37:23 03/09/2003/10/2023 HIV 1/2 ANTIG EN/AN TIBOD Y,FOU RTH GENER ATION W/RFL HIV Ag/Ab, 4TH gen NON-RE ACTIVE non-re active normal HIV-1 antig en and HIV-1 /HIV- 2 antib odies were not detec joe. There is no labor atory evide nce of HIV infec tion. PLEAS E NOTE: This infor matio n has been discl osed to you from recor ds whose confi denti ality may be prote cted by state law. If your state requi res such prote ction , then the state law prohi bits you from alison jaquez furth er discl osure of the infor matio n witho ut the speci fic writt en conse nt of the perso n to whom it perta ins, or as other workman permi tted by law. A gener al autho rizat ion for the relea se of medic al or other infor matio n is NOT suffi cient for this purpo se. For addit ional infor matio n pleas e refer to http: //[facility] catsavannah n.que stdia gnost ics.c om/fa q/FAQ 106 (This link is being provi ded for infor matio nal/ educa suzanna l purpo ses only. ) The perfo rmanc e of this assay has not been clini marah valid ated in patie nts less than 2 years old. Not Available [email or web address] [address], [place], [address], 03/10/2023 07:27:27 03/09/2003/10/2023 RPR (DX) W/REF L TITER AND CONFI RMATO RY TESTI NG RPR (DX) w/refl titer and confirmatory testing NON-RE ACTIVE non-re active normal Not Available [address], [address], 03/10/2023 14:53:56 03/09/20 23 03/10/2023 ANTIB MARNI SCREE N, RBC W/REF L ID, TITER AND AG antibody screen, RBC w/refl id, titer and Ag NO ANTIBO DIES DETECT ED normal Refer ence range No antib odies detec joe This assay is a scree martin test for the detec tion of red blood cell antib odies . The test is not to be used for pretr ansfu rissa scree martin or for the medic al manag ement of an alloi mmuni zed pregn radha. Not Available [address] [facility], [place], [address], 03/10/2023 16:45:21 03/09/20 23 03/10/2023 ABO GROUP AND RH TYPE ABO group A Not Available [address], [address], 03/10/2023 16:45:22 03/09/20 23 03/10/2023 ABO GROUP AND RH TYPE Rh type RH(D) POSITI VE For addit ional infor edith bonds e refer to http: //[facility] Grant stDia gnost ics.c om/fa q/FAQ 111 (This link is being provi ded for infor sterling velazquez/ educluanne briseno l purpo ses only. ) Not Available [address] [place], [address], 03/10/2023 16:45:22 03/09/20 23 03/10/2023 DRUG MONIT OR, PANEL 1, SCREE N, URINE amphetamines POSITI VE NG/mL <500 abnormal See Note A See Note A Not Available [email or web address] [address], [address], 03/11/2023 00:01:44 03/09/2003/10/2023 DRUG MONIT OR, PANEL 1, SCREE N, URINE barbiturates NEGATI VE NG/mL <300 See Note A See Note A Not Available [email or web address] [address] [address] [address], [place], [address], 03/11/2023 00:01:44 03/09/2003/10/2023 DRUG MONIT OR, PANEL 1, SCREE N, URINE benzodiazepi kashif NEGATI VE NG/mL <100 See Note A See Note A Not Available [email or web address] [address] [address] [address], [place], [address], 03/11/2023 00:01:44 03/09/2003/10/2023 DRUG MONIT OR, PANEL 1, SCREE N, URINE cocaine metabolite NEGATI VE NG/mL <150 See Note A See Note A Not Available [email or web address] [address] [address] [address], [place], [address], 03/11/2023 00:01:44 03/09/2003/10/2023 DRUG MONIT OR, PANEL 1, SCREE N, URINE marijuana metabolite POSITI VE NG/mL <20 abnormal See Note A See Note A Not Available [email or web address] [address] [address] [address], [place], [address], 03/11/2023 00:01:44 03/09/20 23 03/10/2023 DRUG MONIT OR, PANEL 1, SCREE N, URINE methadone metabolite NEGATI VE NG/mL <100 See Note A See Note A Not Available [email or web address] [address] [address] [address], [place], [address], 03/11/2023 00:01:44 03/09/20 23 03/10/2023 DRUG MONIT OR, PANEL 1, SCREE N, URINE opiates NEGATI VE NG/mL <100 See Note A See Note A Not Available [email or web address] [address] [address] [address], [place], [address], 03/11/2023 00:01:44 03/09/20 23 03/10/2023 DRUG MONIT OR, PANEL 1, SCREE N, URINE oxycodone NEGATI VE NG/mL <100 See Note A See Note A Not Available [address] [address] [address], [place], [address], 03/11/2023 00:01:44 03/09/2003/10/2023 DRUG MONIT OR, PANEL 1, SCREE N, URINE phencyclidin e NEGATI VE NG/mL <25 See Note A See Note A Not Available [address] [address] [address], [place], [address], 03/11/2023 00:01:44 03/09/2003/10/2023 DRUG MONIT OR, PANEL 1, SCREE N, URINE creatinine 153.0 mg/dL > or = 20.0 Not Available [address] [address] [address], [place], [address], 03/11/2023 00:01:44 03/09/2003/10/2023 DRUG MONIT OR, PANEL 1, SCREE N, URINE pH 7.3 4.5-9. 0 Not Available [address] [address] [address], [place], [address], 03/11/2023 00:01:44 03/09/2003/10/2023 DRUG MONIT OR, PANEL 1, SCREE N, URINE oxidant NEGATI VE mcg/m L <200 Not Available [address], [place], [address], 03/11/2023 00:01:44 03/09/2003/10/2023 DRUG MONIT ORING TEMPL ATE notes and comments This drug testi ng is for medic al treat ment only. Wallace sis was perfo rmed as non-f orens ic testi ng and these resul ts shoantonino d be used only by healt hcare provi ders to rende r diagn osis or treat ment, or to monit or progr ess of medic al condi tions . Note A: The resul ts are presu mptiv e; based only on romulo morgan, and they have not been confi rmed by a jessica Garcia hcare Provi ders needi ng Inter preta tion martita tance , pleas e conta ct us at 1.877 .40.R XTOX (1.87 [phone] .[phone] ) M-F, 8am to 10pm EST Not Available [facility] [address] [address] [place], [address], 03/11/2023 00:01:45 03/09/2003/10/2023 CULTU RE, URINE , ROUTI NE culture SEE NOTE Not Available [facility] [address] [address] [place], [address], 03/10/2023 04:53:05 03/09/2003/11/2023 HCV RNA, QUANT ITATI VE REAL TIME PCR HCV RNA, quantitative real time PCR 872150 0 IU/mL not detect ed high Not Available [facility] [address] [address] [place], [address], 03/11/2023 17:43:06 03/09/2003/11/2023 HCV RNA, QUANT ITATI VE REAL TIME PCR HCV RNA, quantitative real time PCR 6.55 log_I U/mL not detect ed high HCV RNA was detec joe. This resul t provi anel labor atory evide nce of a curre nt activ e HCV infec tion. Not Available [facility] [address] [address] [place], [address], 03/11/2023 17:43:06 03/09/2003/11/2023 HCV RNA, QUANT ITATI VE REAL TIME PCR comment This test was perfo rmed using Real- Time Polym erase Chain React ion. Repor table Range : 15 IU/mL to 100,0 00,00 0 IU/mL (1.18 Log IU/mL to 8.00 Log IU/mL ). The wallace tical perfo rmanc e shelli cteri stics of this assay have been deter mined by [employer]. The modif icati ons have not been clear ed or appro carli by the FDA. This assay has been valid ated pursu ant to the CLIA regul ation s and is used for clini bowen purpo ses. For more infor sterling mauricio on this test, go to: http: //[facility] francisco mauircio.que stdia gnost ics.c om/fa q/FAQ 22v1 (This link is being provi ded for infor matsavannah nal/ educa suzanna l purpo ses only. ) This assay is inten ded for use as an aid in the diagn osis of HCV infec tion and the manag ement of HCV infec joe munguia nts under going anti- viral thera py. Not Available [address], [address], 03/11/2023 17:43:06 03/09/20 23 03/10/2023 CHLAM YDIA/ N. GONOR RHOEA E RNA, TMA, UROGE NITAL chlamydia trachomatis RNA, tma, urogenital NOT DETECT ED not detect ed normal Not Available [address], [address], 03/10/2023 14:01:58 03/09/20 23 03/10/2023 CHLAM YDIA/ N. GONOR RHOEA E RNA, TMA, UROGE NITAL neisseria gonorrhoeae RNA, tma, urogenital NOT DETECT ED not detect ed normal Not Available [facility] [address], [address], 03/10/2023 14:01:58 03/09/20 23 03/10/2023 CHLAM YDIA/ N. GONOR RHOEA E RNA, TMA, UROGE NITAL comment The wallace tical perfo rmanc e shelli cteri stics of this assay , when used to test SureP ath(T M) speci mens have been deter mined by [email or web address] [facility] o[facility]. The modif icati ons have not been clear ed or appro carli by the FDA. This assay has been valid ated pursu ant to the CLIA regul ation s and is used for clini bowen purpo ses. For addit ional infor edith bonds refer to https ://ed ucati on.qu nell [employer]. [employer]/f aq/FA Q154 (This link is being provi ded for infor sterling mauricio/ dale briseno l purpo ses only. ) Not Available [employer] [address] [address] [place], [address], 03/10/2023 14:01:58 03/09/20 23 03/10/2023 CULTU RE, URINE , ROUTI NE culture, urine, routine SEE NOTE CULTU RE, URINE , ROUTI NE Micro Numbe r: [id number] Test Statu s: Final Speci men Sourc e: Urine , clean catch Speci men Quali ty: Adequ ate Resul t: Mixed genit al osman isola joe. These super ficia l bacte eladio are not indic ative of a urina ry tract infec tion. No furth er organ ism ident ifica tion is warra nted on this speci men. If clini marah indic ated, recol lect clean -catc h, mid-s tream urine and trans jag immed iatel y to Urine Cultu re Trans port Tube. Not Available [email or web address] [address] [address] [place], [address], 03/10/2023 23:35:59 04/04/20 23 04/05/2023 DRUG MONIT OR, PANEL 1, SCREE N, URINE amphetamines NEGATI VE NG/mL <500 See Note A See Note A Not Available [email or web address] [address] [address] [place], [address], 04/05/2023 23:28:33 04/04/20 23 04/05/2023 DRUG MONIT OR, PANEL 1, SCREE N, URINE barbiturates NEGATI VE NG/mL <300 See Note A See Note A Not Available [facility] [address] [address] [address], [place], [address], 04/05/2023 23:28:33 04/04/20 23 04/05/2023 DRUG MONIT OR, PANEL 1, SCREE N, URINE benzodiazepi kashif NEGATI VE NG/mL <100 See Note A See Note A Not Available [email or web address] [address] [address] [address], [place], [address], 04/05/2023 23:28:33 04/04/20 23 04/05/2023 DRUG MONIT OR, PANEL 1, SCREE N, URINE cocaine metabolite NEGATI VE NG/mL <150 See Note A See Note A Not Available [email or web address] [address] [address] [address], [place], [address], 04/05/2023 23:28:33 04/04/20 23 04/05/2023 DRUG MONIT OR, PANEL 1, SCREE N, URINE marijuana metabolite POSITI VE NG/mL <20 abnormal See Note A See Note A Not Available [email or web address] [address] [address] [address], [place], [address], 04/05/2023 23:28:33 04/04/2004/05/2023 DRUG MONIT OR, PANEL 1, SCREE N, URINE methadone metabolite NEGATI VE NG/mL <100 See Note A See Note A Not Available [email or web address] [address] [address] [address], [place], [address], 04/05/2023 23:28:33 04/04/20 23 04/05/2023 DRUG MONIT OR, PANEL 1, SCREE N, URINE opiates NEGATI VE NG/mL <100 See Note A See Note A Not Available [email or web address] [address] [address] [address], [place], [address], 04/05/2023 23:28:33 04/04/20 23 04/05/2023 DRUG MONIT OR, PANEL 1, SCREE N, URINE oxycodone NEGATI VE NG/mL <100 See Note A See Note A Not Available [email or web address] [address] [address] [address], [place], [address], 04/05/2023 23:28:33 04/04/20 23 04/05/2023 DRUG MONIT OR, PANEL 1, SCREE N, URINE phencyclidin e NEGATI VE NG/mL <25 See Note A See Note A Not Available [address] [address] [address], [place], [address], 04/05/2023 23:28:33 04/04/20 23 04/05/2023 DRUG MONIT OR, PANEL 1, SCREE N, URINE creatinine 53.4 mg/dL > or = 20.0 Not Available [address] [address] [address] , [place], [address], 04/05/2023 23:28:33 04/04/20 23 04/05/2023 DRUG MONIT OR, PANEL 1, SCREE N, URINE pH 7.7 4.5-9. 0 Not Available [address] [address] [address] , [place], [address], 04/05/2023 23:28:33 04/04/20 23 04/05/2023 DRUG MONIT OR, PANEL 1, SCREE N, URINE oxidant NEGATI VE mcg/m L <200 Not Available [address] [address] [address] , [place], [address], 04/05/2023 23:28:33 04/04/2004/05/2023 DRUG MONIT ORING TEMPL ATE notes and comments This drug testi ng is for medic al treat ment only. Wallace sis was perfo rmed as non-f orens ic testi ng and these resul ts shoul d be used only by radha mireles provi ders to rende r diagn osis or treat ment, or to monit or progr ess of medic al condi tions . Note A: The resul ts are presu mptiv e; based only on romulo sexton ds, and they have not been confi rmed by a defin itive carlie stockton. Radha mireles Provi ders needi ng Inter preta tion martita tance , pleas e conta ct us at 1.877 .40.R XTOX (1.87 7.407 .9869 ) M-F, 8am to 10pm EST Not Available [address] [address] [place], [address], 04/05/2023 23:28:33 04/04/20 23 04/09/2023 CULTU RE, GROUP B STREP WITH SUSCE PTIBI LITY culture, group B strep with susceptibili ty SEE NOTE abnormal CULTU RE, GROUP B STREP WITH SUSCE PTIBI LITY Micro Numbe r: [id number] Test Statu s: Final Speci men Sourc e: Vagin al/an orect al Speci men Quali ty: Adequ ate Resul t: Group B Strep tococ cus isola joe Negat andres for induc ible clind amyci n resis tance . Note per CDC guide lines optim al recov umang is achie carli by swabb ing both the lower vagin a and rectu m (thro ugh the anal sphin cter) . Group B Strep ----- ----- ----- - INT TUSHAR AMPIC ILLIN S <=0.2 5 CLIND AMYCI N S <=0.2 5 PENIC ILLIN S <=0.0 6 VANCO MYCIN S 0.5 S=[place] cepti ble I=Int ermed iate R=Res istan t * = Not Teste d NR = Not Repor joe NN = See Thera py Comme nts Not Available [email or web address] [address] [address] [address], [place], [address], 04/09/2023 08:34:45 04/13/2004/14/2023 DRUG MONIT OR, PANEL 1, SCREE N, URINE amphetamines NEGATI VE NG/mL <500 See Note A See Note A Not Available [email or web address] [address] [address] [place], [address], 04/14/2023 23:34:50 04/13/20 23 04/14/2023 DRUG MONIT OR, PANEL 1, SCREE N, URINE barbiturates NEGATI VE NG/mL <300 See Note A See Note A Not Available [email or web address] [address] [address] [address], [place], [address], 04/14/2023 23:34:50 04/13/20 23 04/14/2023 DRUG MONIT OR, PANEL 1, SCREE N, URINE benzodiazepi kashif NEGATI VE NG/mL <100 See Note A See Note A Not Available [email or web address] [address] [address] [address], [place], [address], 04/14/2023 23:34:50 04/13/20 23 04/14/2023 DRUG MONIT OR, PANEL 1, SCREE N, URINE cocaine metabolite NEGATI VE NG/mL <150 See Note A See Note A Not Available [email or web address] [address] [address] [address], [place], [address], 04/14/2023 23:34:50 04/13/20 23 04/14/2023 DRUG MONIT OR, PANEL 1, SCREE N, URINE marijuana metabolite POSITI VE NG/mL <20 abnormal See Note A See Note A Not Available [email or web address] [address] [address] [address], [place], [address], 04/14/2023 23:34:50 04/13/20 23 04/14/2023 DRUG MONIT OR, PANEL 1, SCREE N, URINE methadone metabolite NEGATI VE NG/mL <100 See Note A See Note A Not Available [email or web address] [address] [address] [address], [place], [address], 04/14/2023 23:34:50 04/13/20 23 04/14/2023 DRUG MONIT OR, PANEL 1, SCREE N, URINE opiates NEGATI VE NG/mL <100 See Note A See Note A Not Available [email or web address] [address] [address] [address], [place], [address], 04/14/2023 23:34:50 04/13/20 23 04/14/2023 DRUG MONIT OR, PANEL 1, SCREE N, URINE oxycodone NEGATI VE NG/mL <100 See Note A See Note A Not Available [facility] [address] [address] [address], [place], [address], 04/14/2023 23:34:50 04/13/20 23 04/14/2023 DRUG MONIT OR, PANEL 1, SCREE N, URINE phencyclidin e NEGATI VE NG/mL <25 See Note A See Note A Not Available [facility] [address] [address] [address], [place], [address], 04/14/2023 23:34:50 04/13/20 23 04/14/2023 DRUG MONIT OR, PANEL 1, SCREE N, URINE creatinine 89.4 mg/dL > or = 20.0 Not Available [facility] [address] [address] [address], [place], [address], 04/14/2023 23:34:50 04/13/20 23 04/14/2023 DRUG MONIT OR, PANEL 1, SCREE N, URINE pH 6.4 4.5-9. 0 Not Available [facility] [address] [address] [address], [place], [address], 04/14/2023 23:34:50 04/13/20 23 04/14/2023 DRUG MONIT OR, PANEL 1, SCREE N, URINE oxidant NEGATI VE mcg/m L <200 Not Available [address] [address] [address] , [place], [address], 04/14/2023 23:34:50 04/13/2004/14/2023 DRUG MONIT ORING TEMPL ATE notes and comments This drug testi ng is for medic al treat ment only. Wallace sis was perfo rmed as non-f orens ic testi ng and these resul ts shoul d be used only by healt hcare provi ders to rende r diagn osis or treat ment, or to monit or progr ess of medic al condi tions . Note A: The resul ts are presu mptiv e; based only on romulo morgan, and they have not been confi rmed by a defin itive metho d. Healt hcare Provi ders needi ng Inter preta tion martita tance , pleas e conta ct us at 1.877 .40.R XTOX (1.87 7.407 .9869 ) M-F, 8am to 10pm EST Not Available [address] [address] [place], [address], 04/14/2023 23:34:52 04/18/20 23 04/21/2023 DRUG MONIT ORING , PANEL 8 WITH CONFI RMATI ON, URINE alcohol metabolites NEGATI VE NG/mL <500 Not Available [address] [address] [place], [address], 04/21/2023 17:47:05 04/18/20 23 04/21/2023 DRUG MONIT ORING , PANEL 8 WITH CONFI RMATI ON, URINE amphetamines NEGATI VE NG/mL <500 Not Available [address] [address] [place], [address], 04/21/2023 17:47:05 04/18/20 23 04/21/2023 DRUG MONIT ORING , PANEL 8 WITH CONFI RMATI ON, URINE benzodiazepi kashif NEGATI VE NG/mL <100 Not Available [address] [address] [place], [address], 04/21/2023 17:47:05 04/18/20 23 04/21/2023 DRUG MONIT ORING , PANEL 8 WITH CONFI RMATI ON, URINE buprenorphin e POSITI VE NG/mL <5 abnormal Not Available [address] [address] [place], [address], 04/21/2023 17:47:05 04/18/20 23 04/21/2023 DRUG MONIT ORING , PANEL 8 WITH CONFI RMATI ON, URINE buprenorphin e 227 NG/mL <2 high Not Available [address] [address] [place], [address], 04/21/2023 17:47:05 04/18/20 23 04/21/2023 DRUG MONIT ORING , PANEL 8 WITH CONFI RMATI ON, URINE norbuprenorp chester 587 NG/mL <2 high Not Available [address] [address] [address] , [place], [address], 04/21/2023 17:47:05 04/18/20 23 04/21/2023 DRUG MONIT ORING , PANEL 8 WITH CONFI RMATI ON, URINE naloxone NEGATI VE NG/mL <2 Not Available [address] [address] [address] , [place], [address], 04/21/2023 17:47:05 04/18/20 23 04/21/2023 DRUG MONIT ORING , PANEL 8 WITH CONFI RMATI ON, URINE buprenorphin e comments See Bupre norph ine Notes , LDT Notes Not Available [address] [address] [address] , [place], [address], 04/21/2023 17:47:05 04/18/20 23 04/21/2023 DRUG MONIT ORING , PANEL 8 WITH CONFI RMATI ON, URINE cocaine metabolite NEGATI VE NG/mL <150 Not Available [address] [address] [address] , [place], [address], 04/21/2023 17:47:05 04/18/20 23 04/21/2023 DRUG MONIT ORING , PANEL 8 WITH CONFI RMATI ON, URINE 6 acetylmorphi ne NEGATI VE NG/mL <10 Not Available [address] [address] [address] , [place], [address], 04/21/2023 17:47:05 04/18/20 23 04/21/2023 DRUG MONIT ORING , PANEL 8 WITH CONFI RMATI ON, URINE marijuana metabolite POSITI VE NG/mL <20 abnormal Not Available [facility] [address] [address] [place], [address], 04/21/2023 17:47:05 04/18/20 23 04/21/2023 DRUG MONIT ORING , PANEL 8 WITH CONFI RMATI ON, URINE marijuana metabolite 188 NG/mL <5 high Not Available [address], [address], 04/21/2023 17:47:05 04/18/20 23 04/21/2023 DRUG MONIT ORING , PANEL 8 WITH CONFI RMATI ON, URINE marijuana comments See Yusef gannon Notes , LDT Notes Not Available [address] [place], [address], 04/21/2023 17:47:05 04/18/20 23 04/21/2023 DRUG MONIT ORING , PANEL 8 WITH CONFI RMATI ON, URINE MDMA NEGATI VE NG/mL <500 Not Available [address], [address], 04/21/2023 17:47:05 04/18/20 23 04/21/2023 DRUG MONIT ORING , PANEL 8 WITH CONFI RMATI ON, URINE opiates NEGATI VE NG/mL <100 Not Available [address], [address], 04/21/2023 17:47:05 04/18/20 23 04/21/2023 DRUG MONIT ORING , PANEL 8 WITH CONFI RMATI ON, URINE oxycodone NEGATI VE NG/mL <100 Not Available [address], [address], 04/21/2023 17:47:05 04/18/20 23 04/21/2023 DRUG MONIT ORING , PANEL 8 WITH CONFI RMATI ON, URINE creatinine 85.0 mg/dL > or = 20.0 Not Available [address] [place], [address], 04/21/2023 17:47:05 04/18/20 23 04/21/2023 DRUG MONIT ORING , PANEL 8 WITH CONFI RMATI ON, URINE pH 6.6 4.5-9. 0 Not Available [address] [address] [address], [place], [address], 04/21/2023 17:47:05 04/18/20 23 04/21/2023 DRUG MONIT ORING , PANEL 8 WITH CONFI RMATI ON, URINE oxidant NEGATI VE mcg/m L <200 Not Available [address] [address] [address], [place], [address], 04/21/2023 17:47:05 04/18/20 23 04/21/2023 DRUG MONIT OR, PANEL 1, SCREE N, URINE amphetamines NEGATI VE NG/mL <500 Not Available [address] [address] [address], [place], [address], 04/21/2023 17:47:05 04/18/20 23 04/21/2023 DRUG MONIT OR, PANEL 1, SCREE N, URINE barbiturates NEGATI VE NG/mL <300 See Note A See Note A Not Available [address] [address] [address], [place], [address], 04/21/2023 17:47:05 04/18/20 23 04/21/2023 DRUG MONIT OR, PANEL 1, SCREE N, URINE benzodiazepi kashif NEGATI VE NG/mL <100 Not Available [address] [address] [address], [place], [address], 04/21/2023 17:47:05 04/18/20 23 04/21/2023 DRUG MONIT OR, PANEL 1, SCREE N, URINE cocaine metabolite NEGATI VE NG/mL <150 Not Available [address] [address] [address], [place], [address], 04/21/2023 17:47:05 04/18/20 23 04/21/2023 DRUG MONIT OR, PANEL 1, SCREE N, URINE marijuana metabolite POSITI VE NG/mL <20 abnormal Not Available [address] [address] [address], [place], [address], 04/21/2023 17:47:05 04/18/20 23 04/21/2023 DRUG MONIT OR, PANEL 1, SCREE N, URINE methadone metabolite NEGATI VE NG/mL <100 See Note A See Note A Not Available [address] [address] [address], [place], [address], 04/21/2023 17:47:05 04/18/20 23 04/21/2023 DRUG MONIT OR, PANEL 1, SCREE N, URINE opiates NEGATI VE NG/mL <100 Not Available [email or web address] [address] [address] [address], [place], [address], 04/21/2023 17:47:05 04/18/20 23 04/21/2023 DRUG MONIT OR, PANEL 1, SCREE N, URINE oxycodone NEGATI VE NG/mL <100 Not Available [address] [address] [address], [place], [address], 04/21/2023 17:47:05 04/18/20 23 04/21/2023 DRUG MONIT OR, PANEL 1, SCREE N, URINE phencyclidin e NEGATI VE NG/mL <25 See Note A See Note A Not Available [address] [address] [address], [place], [address], 04/21/2023 17:47:05 04/18/20 23 04/21/2023 DRUG MONIT OR, PANEL 1, SCREE N, URINE creatinine 85.0 mg/dL > or = 20.0 Not Available [address] [address] [address], [place], [address], 04/21/2023 17:47:05 04/18/2004/21/2023 DRUG MONIT OR, PANEL 1, SCREE N, URINE pH 6.6 4.5-9. 0 Not Available [address] [address] [address], [place], [address], 04/21/2023 17:47:05 04/18/20 23 04/21/2023 DRUG MONIT OR, PANEL 1, SCREE N, URINE oxidant NEGATI VE mcg/m L <200 Not Available [employer] [facility] [address] [address], [place], [address], 04/21/2023 17:47:05 04/18/20 23 04/21/2023 DRUG MONIT ORING TEMPL ATE notes and comments This drug testi ng is for medic al treat ment only. Wallace sis was perfo rmed as non-f orens ic testi ng and these resul ts shoul d be used only by healt hcare provi ders to rende r diagn osis or treat ment, or to monit or progr ess of medic al condi tions . Note A: The resul ts are presu mptiv e; based only on romulo torresg metho ds, and they have not been confi rmed by a defin itive metho d. Bupre norph ine Notes : Bupre norph ine, Norbu preno rphin e detec joe is consi stent with the use of the drug( s) Bupre norph ine or Bupre norph ine with Nalox one. Nalox one may be negat andres due to poor oral bioav ailab ility and/o r short half- life. Marij uana Notes : Marij uana Metab olite detec joe is consi stent with expos ure to Marij uana (THC) and/o r hemp deriv ed produ cts. Some juris dicti ons do not inclu de hemp withi n the defin ition of Marij uana. LDT Notes : Confi rmati on tests were devel oped and their wallace tical perfo rmanc e shelli cteri stics have been deter mined by [facility]. It has not been clear ed or appro carli by the FDA. This assay has been valid ated pursu ant to the CLIA regul ation s and is used for clini bowen purpo ses. Healt hcare Provi ders needi ng Inter preta tion martita tance , pleas e conta ct us at 1.877 .40.R XTOX (1.87 7.407 .9869 ) M-F, 8am to 10pm EST Not Available [email or web address] [address] [place], [address], 04/21/2023 17:47:06 Result Notes None recorded. Problems Name Problem SNOMED Code Status Onset Date Resolution Date Notes Provider Name and Address Organization Details Recorded Time Normal in multigravid a 2175344055241 06 Active 2022 Martha Heard MD [address] [place] [address], [id number] [place] [address], [facility] 10:47:23 Problem Notes None recorded. Procedures Surgical History Date Name Laterality Status Provider Name and Address Organization Details Recorded Time 10/14/19 22 Date of Last Pap Smear completed [facility] 03/09/2023 15:55:02 Cholecystectomy completed [facility] 01/06/2023 14:06:06 Imaging Results None recorded. Procedure Notes None recorded. Medical Equipment None Reported. Allergies Allergen ID Allergen Name Allergen Category Reaction Reaction Severity Criticality Documentation Date Start Date Code Code System Note Provider Name and Address Organization Details Recorded Time 3555 Product containin g penicilli n (product) medicatio n hives Not available Not available 01/06/2023 38647 8001 SNOMED [facility] 13:55:24 3556 Keflex medicatio n hives Not available Not available 01/06/202354936 7 RxNorm [facility] 13:55:35 21177 penicilli n G sodium medicatio n Not available Not available Not available 03/11/2023 9900 RxNorm Comme nt: Recor ded 03/16 3:29P M by Angie bacon er, Offic e Visit ; Promo joe; Signi fican ce: *; Reaso n: Drug aller gy; ; Not Available [facility] 3 02:28:49 Medications Name Sig Start Date Stop Date Status Note LastModified by Organization Details LastModified Time ibuprofen 800 mg tablet TAKE 1 TABLET BY MOUTH THREE TIMES DAILY active Not Available Not Available No t Available clonazepa m 0.5 mg tablet 03/09 completed Not Available Not Available Not Available citalopra m 20 mg tablet TAKE 1 TABLET BY MOUTH EVERY DAY active Not Available Not Available No t Available docusate sodium 100 mg capsule TAKE 1 CAPSULE BY MOUTH TWICE DAILY AT BEDTIME NEEDED FOR CONSTIPA TION active Not Available Not Available No t Available buprenorp chester HCl 8 mg sublingua l tablet PLACE 1 TABLET BY SUBLINGU AL ROUTE THREE TIMES DAILY ALLOW TO DISSOLVE SLOWLY IN MOUTH WITHOUT CHEWING OR SWALLOWI NG active Not Available Not Available No t Available 1 qd active Not Available Not Avai lable Not Available Vitamin QD 04/04 completed Recorded 10/14/19 12:20PM by Angie everett, Historic al Summary; Refill Quantity : 90; Tablet; Not Available Not Available Not Available aripipraz ole 2 mg tablet TAKE 1 TABLET BY MOUTH EVERY DAY active Not Available Not Available No t Available Narcan 4 mg/actuat ion nasal spray CALL 911. SPR CONTENTS OF ONE SPRAYER (0.1ML) INTO ONE NOSTRIL. REPEAT IN 2-3 MIN IF SYMPTOMS OF OPIOID EMERGENC Y PERSIST, ALTERNAT E NOSTRILS active Not Available Not Available No t Available Vitals Date Recorded Body height Body mass index (BMI) Body weight Respiratory rate Oxygen saturation Heart rate Body temperature Systolic And Diastolic Provider Name and Address Organization Details Last Updated DateTime 3 161.29 cm 32.5 kg/m2 25656.9 82378 g 20 /min 97 % 100 /min 98.8 [degF] 124/82 mm[Hg] [facility] 15:50:12 Date Recorded Body height Provider Name an d Address Organization Details Last Updated DateTime 03/20/2023 161.29 cm [facility] 03/20/2023 09:39:20 Date Recorded Body mass index (BMI) Body weight Oxygen saturation Heart rate Respiratory rate Body temperature Systolic And Diastolic Provider Name and Address Organization Details Last Updated DateTime 3 31.6 kg/m2 29226.2 1897 g 99 % 100 /min 18 /min 97.8 [degF] 118/74 mm[Hg] ANGIE VIZCARRA [facility] 3 09:53:04 Date Recorded Body height Body mass index (BMI) Body weight Oxygen saturation Heart rate Respiratory rate Body temperature Systolic And Diastolic Provider Name and Address Organization Details Last Updated DateTime 3 161.29 cm 32.9 kg/m2 06173.1 34111 g 98 % 72 /min 18 /min 98 [degF] 110/64 mm[Hg] ANGIE VIZCARRA [facility] 3 09:32:12 Date Recorded Body height Body mass index (BMI) Body weight Oxygen saturation Heart rate Respiratory rate Body temperature Systolic And Diastolic Provider Name and Address Organization Details Last Updated DateTime 3 161.29 cm 33.5 kg/m2 33125.7 3504 g 98 % 68 /min 18 /min 97.6 [degF] 114/62 mm[Hg] ANGIE GALVEZAKVargas [facility] 3 14:40:35 Date Recorded Body height Body mass index (BMI) Body weight Oxygen saturation Heart rate Respiratory rate Body temperature Systolic And Diastolic Provider Name and Address Organization Details Last Updated DateTime 3 161.29 cm 33.5 kg/m2 34204.7 43519 g 99 % 71 /min 18 /min 97.8 [degF] 120/78 mm[Hg] ANGIE VIZCARRA [facility] 3 10:18:03 Social History Question Answer Notes LastModified by Organizat ion Details LastModified Time Tobacco Smoking Status Current Every Day Smoker LASHAE collins [facility] 01/06/2023 14:05:26 Which Illicit Or Recreational Drugs Have You Used? Marijuana Daily Information not available 01/06/2023 How Many Children Do You Have? 5 Information not available 01/06/2023 What Is Your Relationship Status? Domestic Partner Information not available 01/06/2023 Are You Sexually Active? Yes Information not available 01/06/2023 Have You Used IV Drugs? No Information not available 01/06/2023 Sex: Unknown Functional Status Question Answer Note LastModified by Organizat ion Details LastModified Time Do you use any illicit or recreational drugs? Yes Information not available 01/06/2023 Do you or have you ever used any other forms of tobacco or nicotine? No Information not available 01/06/2023 What is your level of alcohol consumption? None Information not available 01/06/2023 Are you able to care for yourself independently? Yes Information not available 01/06/2023 Mental Status None recorded. Family History Relationship Description Onset Age of this Age Resolved Age Notes LastModified by Organization Details LastModified Time Father No current problems or disability Not available 01/06 14:04:25 Mother No current problems or disability Not available 01/06 14:04:25 Notes:In good health: First Degree Relatives Medical History No medical history recorded. Gynecological History Statement/Question Response Abnormal Pap N Date of Last Pap Smear 10/13/2021 Obstetrics History GPAL:G 7 P 6 0 0 5 Type Value Full Term 6 Living 5 Total 7 Immunizations Vaccine Type Date Status Note Provider Nam e and Address Organization Details Recorded Time MMR 6 completed LASHAE collins [facility] 01/06/2023 13:54:41 MMR 9 completed LASHAE collins [facility] 01/06/2023 13:54:41 MMR 2 completed LASHAE collins [facility] 01/06/2023 13:54:41 Tdap 9 mart collins [facility] 01/06/2023 13:54:41 DTP 5 completed LASHAE GERMANIA null, [facility] 01/06/2023 13:54:41 DTP 1 completed LASHAE GERMANIA null, [facility] 01/06/2023 13:54:41 DTP 1 completed LASHAE GERMANIA null, [facility] 01/06/2023 13:54:41 DTP 2 completed LASHAE GERMANIA null, [facility] 01/06/2023 13:54:42 Hep B, unspecified formulation 6 completed LASAHEAZALIA RAYAY null, [facility] 01/06/2023 13:54:42 Hep B, unspecified formulation 5 completed LASHAE GERMANIA null, [facility] 01/06/2023 13:54:42 Hep B, unspecified formulation 5 completed LASHAE GERMANIA null, [facility] 01/06/2023 13:54:42 OPV, trivalent 6 completed LASHAE GERMANIA null, [facility] 01/06/2023 13:54:42 OPV, trivalent 2 completed LASHAE GERMANIA null, [facility] 01/06/2023 13:54:42 OPV, trivalent 9 completed LASHAE GERMANIA null, [facility] 01/06/2023 13:54:42 OPV, trivalent 1 completed LASHAE GERMANIA null, [facility] 01/06/2023 13:54:42 OPV, trivalent 2 completed LASHAE RAYAY null, [facility] 01/06/2023 13:54:42 Hib ([facility]) 2 completed LASHAE GERMANIA null, [facility] 01/06/2023 13:54:42 Hib (HbO) 1 completed LASHAE GERMANIA null, [facility] 01/06/2023 13:54:42 Hib ([facility]) 2 completed LASHAE GERMANIA null, [facility] 01/06/2023 13:54:42 DTaP 6 completed LASHAE RAYAY null, [facility] 01/06/2023 13:54:42 Influenza, split virus, trivalent, preservative 6 completed Not Available [facility] 04[facility]18/[facility]23 09:37:27 Past Encounters Encounter ID Performer Location Encounter Start Date Encounter Closed Date Diagnosis/Indication Diagnosis SNOMED-CT Code Diagnosis ICD10 Code Diagnosis IMO Codes Diagnosis Note [id number] Martha Heard MD [facility] ([facility]) [address] [place] [address] [phone] 01/06/2023 13:36:57 01/06/2023 19:06:44 Normal in multigravida [id number] 65124 Z34.80 unsure of LMP [id number] Martha Heard MD [facility] ([facility]) [address] [place] [address] [phone] 01/10/2023 13:52:16 01/10/2023 15:02:16 [id number] Martha Heard MD [facility] ([facility]) [address] [place] [address] [id number] 03/09/2023 15:39:08 03/09/2023 16:44:58 Normal in multigravida [id number] 65184 Z34.83 Gestation period, 32 weeks [id number] Z3A.32 [id number] Martha Heard MD [facility] ([facility]) [address] [place] [address] [phone] 03/20/2023 09:25:50 03/20/2023 20:23:10 Normal in multigravida [id number] 92144 Z34.83 Gestation period, 34 weeks 26804362 Z3A.34 Mass of neck 936687004 R 22.1 Depressive disorder 3548 9007 F32.A History of methamphetamine abuse [id number] F15.21 [id number] Martha Heard MD [facility] ([facility]) [address] [place] [address] [id number] 04/04/2023 09:15:11 04/04/2023 10:44:00 [id number] Z33.1 Multigravida 205220833 Z 34.83 Gestation period, 36 weeks 59690524 Z3A.36 [id number] Martha Heard MD [facility] ([facility]) [address] [place] [address] [phone] 04/13/2023 13:47:15 04/23/2023 09:16:53 [id number] Z33.1 Normal pre gnancy in multigravida [id number] 91191 Z34.83 Gestation period, 37 weeks 47951995 Z3A.37 [id number] Martha Heard MD [facility] ([facility]) [address] [place] [address] [phone] 04/18/2023 09:37:18 04/18/2023 18:46:52 Multigravida [id number] Z34.83 Gestation period, 38 weeks 42516605 Z3A.38 Health Concerns Section Related Observation LastModified by Organization Detai ls LastModified Time None Recorded Concern Status LastModified by Organization Details LastModified Time None Recorded Advance Directives Directive None Recorded Payers Insurance Date Sequence Insurance Name Policy Number Policy Hagen Covered Member ID Hagen Member ID Guarantor Name 03/20/2023 1 [facility] (MEDICAID HMO) Juliann Mckeon [id number] Juliann Mckeon 03/20/2023 [facility] (MEDICAID HMO) Juliann R Brim [id number] Juliann R Brim 04/29/2023 1 [employer] (MEDICAID REPLACEMENT - HMO) [id number] Juliann R Brim [id number] Juliann R Brim Notes Date Note Type Note Provider Name and Address Organization Details Recorded Time 03/09/2023 text/html jr ob routineRep orted by PatientHPIFor associated symptoms, patient reportsno abdominal pain,no cramping,no contractions,normal movement,no bleeding,no vaginal discharge,no vaginal/vulvar itching or irritation,no dysuria,no frequency,no hematuria,no fever,no nausea,no emesis,no constipation,no diarrhea/loose stool,no edema,no visual changes,no headache,no dizziness, andno breathlessness(heartbur n). Martha Heard MD [address] [place] [address], [phone], [facility] 03/09/2023 16:19:13 03/20/2023 text/html ob routineRep orted by PatientHPIFor associated symptoms, patient reportsnausea,emesis, andconstipationbut reportsno abdominal pain,no cramping,no contractions,normal movement,no bleeding,no vaginal discharge,no vaginal/vulvar itching or irritation,no dysuria,no frequency,no hematuria,no fever,no diarrhea/loose stool,no edema,no visual changes,no headache,no dizziness, andno breathlessness(heartbur n, vag press). Martha Heard MD [address] [place] [address], [phone], [facility] 03/20/2023 10:43:45 04/04/2023 text/html ob routineRep orted by PatientHPIFor associated symptoms, patient reportsabdominal pain,contractions, anddizzinessbut reportsno cramping,normal movement,no bleeding,no vaginal discharge,no vaginal/vulvar itching or irritation,no dysuria,no frequency,no hematuria,no fever,no nausea,no emesis,no constipation,no diarrhea/loose stool,no edema,no visual changes,no headache, andno breathlessness(heartbur n, vag presspt smokes 1/2 ppd, pt did take meth last month, pt denies any alcohol use. pt has started going to na meetings). Martha Heard MD [address] [place] [address], [phone], [facility] 04/04/2023 10:01:57 04/13/2023 text/html ob routineRep orted by PatientHPIFor associated symptoms, patient reportsabdominal pain,cramping,contracti ons, anddizzinessbut reportsnormal movement,no bleeding,no vaginal discharge,no vaginal/vulvar itching or irritation,no dysuria,no frequency,no hematuria,no fever,no nausea,no emesis,no constipation,no diarrhea/loose stool,no edema,no visual changes,no headache, andno breathlessness(heartbur n, vag press, back painpt smokes 1/2 ppd, pt has not used meth in over a month, pt denies any alcohol use. pt has started going to na meetings). Martha Heard MD [address] [place] [address], [phone], [facility] 04/14/2023 08:21:11 04/18/2023 text/html ob routineRep orted by PatientHPIFor associated symptoms, patient reportscontractions,hea dache, anddizzinessbut reportsno abdominal pain,no cramping,normal movement,no bleeding,no vaginal discharge,no vaginal/vulvar itching or irritation,no dysuria,no frequency,no hematuria,no fever,no nausea,no emesis,no constipation,no diarrhea/loose stool,no edema,no visual changes, andno breathlessness(heartbur n, vag press, back painpt smokes 1/2 ppd, pt has not used meth in over a month, pt denies any alcohol use. pt has started going to na meetings). Martha Heard MD [address] [place] [address], [phone] 11:03:02 OBGyn Episode Ob Episode Information Episode Created Date Number of Fetuses Patient Bloodtype Patient rh Status Prepregnancy Weight lbs Domestic Partner Domestic Partner Phone Father Name Avp Status 01/07/20 23 1 CLOSED Fetus Data First Name Last Name Admitted to NICU Weight (g) Sex Living Outcome Pediatric Complications Fetus ID Race Codes Race Delivery Type 3628.73 6 F Full Term 1004 VAGINAL Emre Calculation Initial Emre Date Initial Exam Date Initial Exam Provider Initial Ultrasound Date Last Menstrual Period Date Ultra Sound Weeks Gestation 0 Eighteen To Twenty Week Emre Update Ultra Sound Date Fundal Height At Umbil Quickening Date Ultra Sound Latest Weeks Gestation Final Emre Confirmed By Final Emre Confirmed Date Final Emre Date Ultra Sound Latest Days Gestation 0 0 Menstrual History Last Menstrual Date Menses Monthly On Bcp Conception Prior Menses Frequency Hcg Plus Date Menarche Onset Age Delivery Information Delivery Date Delivery Type Labor Anesthesia Weeks Gestation Incision Type Labor Labor Length Hrs Delivered By Post Complications Tubal Sterilization Discharge Date Comments 9 Regional-Ep idural 38 AROM Discharge Information Feeding Method Contraceptive Method Maternal HG B and HCT Levels Ob Episode Information Episode Created Date Number of Fetuses Patient Bloodtype Patient rh Status Prepregnancy Weight lbs Domestic Partner Domestic Partner Phone Father Name Avp Status 01/07/20 23 1 CLOSED Fetus Data First Name Last Name Admitted to NICU Weight (g) Sex Living Outcome Pediatric Complications Fetus ID Race Codes Race Delivery Type 3175.14 4 F Full Term 1006 VAGINAL Emre Calculation Initial Emre Date Initial Exam Date Initial Exam Provider Initial Ultrasound Date Last Menstrual Period Date Ultra Sound Weeks Gestation 0 Eighteen To Twenty Week Emre Update Ultra Sound Date Fundal Height At Umbil Quickening Date Ultra Sound Latest Weeks Gestation Final Emre Confirmed By Final Emre Confirmed Date Final Emre Date Ultra Sound Latest Days Gestation 0 0 Menstrual History Last Menstrual Date Menses Monthly On Bcp Conception Prior Menses Frequency Hcg Plus Date Menarche Onset Age Delivery Information Delivery Date Delivery Type Labor Anesthesia Weeks Gestation Incision Type Labor Labor Length Hrs Delivered By Post Complications Tubal Sterilization Discharge Date Comments 2 Regional-Ep idural 41 cytotec induction , SROMdecea sed at 21 days of life Discharge Information Feeding Method Contraceptive Method Maternal HG B and HCT Levels Ob Episode Information Episode Created Date Number of Fetuses Patient Bloodtype Patient rh Status Prepregnancy Weight lbs Domestic Partner Domestic Partner Phone Father Name Avp Status 01/07/20 23 1 A Positive OPEN Fetus Data First Name Last Name Admitted to NICU Weight (g) Sex Living Outcome Pediatric Complications Fetus ID Race Codes Race Delivery Type 1007 Problems Problem Notes Hep c pos and amphetamine po s., THC positiveDesires tubal Problem Name Start Date End Date Resolution Snomed Code Not e Normal in multigravida 01/06/2023 [id number] Emre Calculation Initial Emre Date Initial Exam Date Initial Exam Provider Initial Ultrasound Date Last Menstrual Period Date Ultra Sound Weeks Gestation 01/06/2023 0 Eighteen To Twenty Week Emre Update Ultra Sound Date Fundal Height At Umbil Quickening Date Ultra Sound Latest Weeks Gestation Final Emre Confirmed By Final Emre Confirmed Date Final Emre Date Ultra Sound Latest Days Gestation 01/11/20 23 20 01/30/2023 04/29/20 23 4 Pre-rashi Flowsheet Flowsheet Date 01/06/2023 Balbuena Score Blood Edema Fundus Height Fundus Units Glucose Ketones Leukocytes Nitrite Labor Signs Protein Cervic Dilation Cervic Effacement Cervic Station Type Weight in lbs Pre/Post Dialysis Refused Weight 180.296213363540 BP Diastolic BP Location Tested BP Systolic BP Type 80 L arm 126 Fetus Heart Rate Present A 144 Present Fetus Movement A Yes Comments OBI- Unsure of LMP Flowsheet Date 01/10/2023 Balbuena Score Blood Edema Fundus Height Fundus Units Glucose Ketones Leukocytes Nitrite Labor Signs Protein Cervic Dilation Cervic Effacement Cervic Station Type Weight in lbs Pre/Post Dialysis Refused BP Diastolic BP Location Tested BP Systolic BP Type Fetus Heart Rate Present Fetus Movement Comments u/s on 01/10/23. EMRE 04/29/23, EGA 20.4, unremarkable screening survey of anatomy Flowsheet Date 03/09/2023 Balbuena Score Blood Edema Fundus Height Fundus Units Glucose Ketones Leukocytes Nitrite Labor Signs Protein Cervic Dilation Cervic Effacement Cervic Station Type Weight in lbs Pre/Post Dialysis Refused Weight 186.609490917779 BP Diastolic BP Location Tested BP Systolic BP Type 82 L arm 124 sitting Fetus Heart Rate Present A 148 Present Fetus Movement A Yes Comments NOB- heartburn. Pt is edu esqueda to come next week for her glucose screening Flowsheet Date 03/20/2023 Balbuena Score Blood Edema Fundus Height Fundus Units Glucose Ketones Leukocytes Nitrite Labor Signs Protein Cervic Dilation Cervic Effacement Cervic Station none none Negative trace Type Weight in lbs Pre/Post Dialysis Refused Weight 181.107875645250 BP Diastolic BP Location Tested BP Systolic BP Type 74 R arm 118 sitting Fetus Heart Rate Present A 128 Present Fetus Movement A Yes Comments nausea, vomiting, heartburn, constipation, heartburn, Flowsheet Date 03/20/2023 Balbuena Score Blood Edema Fundus Height Fundus Units Glucose Ketones Leukocytes Nitrite Labor Signs Protein Cervic Dilation Cervic Effacement Cervic Station Type Weight in lbs Pre/Post Dialysis Refused BP Diastolic BP Location Tested BP Systolic BP Type Fetus Heart Rate Present Fetus Movement Comments Home State RA complete Flowsheet Date 03/29/2023 Balbuena Score Blood Edema Fundus Height Fundus Units Glucose Ketones Leukocytes Nitrite Labor Signs Protein Cervic Dilation Cervic Effacement Cervic Station Type Weight in lbs Pre/Post Dialysis Refused BP Diastolic BP Location Tested BP Systolic BP Type Fetus Heart Rate Present Fetus Movement Comments Healthy Blue RA complete Flowsheet Date 04/04/2023 Balbuena Score Blood Edema Fundus Height Fundus Units Glucose Ketones Leukocytes Nitrite Labor Signs Protein Cervic Dilation Cervic Effacement Cervic Station none none Negative [place] Brennan trace 1cm 20% -4 Type Weight in lbs Pre/Post Dialysis Refused Weight 188.46398886517 BP Diastolic BP Location Tested BP Systolic BP Type 64 110 sitting Fetus Heart Rate Present A 140 Present Fetus Movement A Yes Comments abdominal pain, dizziness, h eartburn, vaginal pressure, group B, repeat drug screen Flowsheet Date 04/10/2023 Balbuena Score Blood Edema Fundus Height Fundus Units Glucose Ketones Leukocytes Nitrite Labor Signs Protein Cervic Dilation Cervic Effacement Cervic Station Type Weight in lbs Pre/Post Dialysis Refused BP Diastolic BP Location Tested BP Systolic BP Type Fetus Heart Rate Present Fetus Movement Comments Drug screen from 04/04/23 pos itive for THC only Flowsheet Date 04/11/2023 Balbuean Score Blood Edema Fundus Height Fundus Units Glucose Ketones Leukocytes Nitrite Labor Signs Protein Cervic Dilation Cervic Effacement Cervic Station Type Weight in lbs Pre/Post Dialysis Refused BP Diastolic BP Location Tested BP Systolic BP Type Fetus Heart Rate Present Fetus Movement Comments GrpB Positive. OB records fa xed Flowsheet Date 04/13/2023 Balbuena Score Blood Edema Fundus Height Fundus Units Glucose Ketones Leukocytes Nitrite Labor Signs Protein Cervic Dilation Cervic Effacement Cervic Station 38 cm none none Negative neg 0cm 10% - 4 Type Weight in lbs Pre/Post Dialysis Refused Weight 192.574666658585 BP Diastolic BP Location Tested BP Systolic BP Type 62 114 sitting Fetus Heart Rate Present A 152 Present Fetus Movement A Yes Comments abdominal pain/cramping, diz ziness, vaginal pressure, back pain Flowsheet Date 04/18/2023 Balbuena Score Blood Edema Fundus Height Fundus Units Glucose Ketones Leukocytes Nitrite Labor Signs Protein Cervic Dilation Cervic Effacement Cervic Station 39 cm none none Negative [place] Brennan trace 2cm 30% -4 Type Weight in lbs Pre/Post Dialysis Refused Weight 192.109810796229 BP Diastolic BP Location Tested BP Systolic BP Type 78 120 sitting Fetus Heart Rate Present A 154 Present Fetus Movement A Yes Comments headache, dizziness, heartbu rn, vaginal pressure, back pain Menstrual History Last Menstrual Date Menses Monthly On Bcp Conception Prior Menses Frequency Hcg Plus Date Menarche Onset Age Genetic Screening And Infection History Question Response Note Patient's Age Will Be 35 Yea rs Or Older At Estimated Date of Delivery false Thalassemia (Romansh, Finnish, Mediterranean, Or Background): MCV < 80 false Neural Tube Defect (Meningom yelocele, Spina Bifida, Or Anencephaly) false Congenital Heart Defect false Down Syndrome false Jose-Sachs (eg, Mosque, Cajun , Faroese-Emanuel) false Mary Ellen Disease false Sickle Cell Disease Or Trait () false Hemophilia Or Other Blood Disorders false Muscular Dystrophy false Cystic Fibrosis false Valeria's Chorea false Intellectual Disability/Autism false If Yes, Was Person Tested For Fragile X? false Other Inherited Genetic Or C hromosomal Disorder false Maternal Metabolic Disorder (eg, Type 1 Diabetes, PKU) false Patient Or Baby's Father Had A Child With Defects Not Listed Above false Recurrent Loss, Or A Stillbirth false Medications (including Suppl ements, Vitamins, Herbs, OTC Drugs), Illicit/Recreational Drugs, Alcohol true , citalopr am, Subudex, marijuana If Yes, Agent(s) And Strength/Dosage false Any Other Genetic History false Live With Someone With TB Or Exposed To TB false Patient Or Partner Has Histo ry Of Genital Herpes false Rash Or Viral Illness Since Last Menstrual Period false History Of STD, Gonorrhea, C hlamydia, HPV, Syphilis false Other Infection History false History of HIV false History of Hepatitis false Prior GBS-infected child false Hemoglobinopathy Or Carrier false Other Structural Defect false Recent Travel History Outside of Country false Mental Retardation/Autism false Delivery Information Delivery Date Delivery Type Labor Anesthesia Weeks Gestation Incision Type Labor Labor Length Hrs Delivered By Post Complications Tubal Sterilization Discharge Date Comments Discharge Information Feeding Method Contraceptive Method Maternal HG B and HCT Levels Ob Episode Information Episode Created Date Number of Fetuses Patient Bloodtype Patient rh Status Prepregnancy Weight lbs Domestic Partner Domestic Partner Phone Father Name Avp Status 01/07/20 23 1 CLOSED Fetus Data First Name Last Name Admitted to NICU Weight (g) Sex Living Outcome Pediatric Complications Fetus ID Race Codes Race Delivery Type 3826.95 5704 F Full Term 1002 VAGINAL Emre Calculation Initial Emre Date Initial Exam Date Initial Exam Provider Initial Ultrasound Date Last Menstrual Period Date Ultra Sound Weeks Gestation 0 Eighteen To Twenty Week Emre Update Ultra Sound Date Fundal Height At Umbil Quickening Date Ultra Sound Latest Weeks Gestation Final Emre Confirmed By Final Emre Confirmed Date Final Emre Date Ultra Sound Latest Days Gestation 0 0 Menstrual History Last Menstrual Date Menses Monthly On Bcp Conception Prior Menses Frequency Hcg Plus Date Menarche Onset Age Delivery Information Delivery Date Delivery Type Labor Anesthesia Weeks Gestation Incision Type Labor Labor Length Hrs Delivered By Post Complications Tubal Sterilization Discharge Date Comments 4 Regional-Ep idural 41 inductio n , AROM Discharge Information Feeding Method Contraceptive Method Maternal HG B and HCT Levels Ob Episode Information Episode Created Date Number of Fetuses Patient Bloodtype Patient rh Status Prepregnancy Weight lbs Domestic Partner Domestic Partner Phone Father Name Avp Status 01/07/20 23 1 CLOSED Fetus Data First Name Last Name Admitted to NICU Weight (g) Sex Living Outcome Pediatric Complications Fetus ID Race Codes Race Delivery Type 3883.65 4704 M Full Term 1003 VAGINAL Emre Calculation Initial Emre Date Initial Exam Date Initial Exam Provider Initial Ultrasound Date Last Menstrual Period Date Ultra Sound Weeks Gestation 0 Eighteen To Twenty Week Emre Update Ultra Sound Date Fundal Height At Umbil Quickening Date Ultra Sound Latest Weeks Gestation Final Emre Confirmed By Final Emre Confirmed Date Final Emre Date Ultra Sound Latest Days Gestation 0 0 Menstrual History Last Menstrual Date Menses Monthly On Bcp Conception Prior Menses Frequency Hcg Plus Date Menarche Onset Age Delivery Information Delivery Date Delivery Type Labor Anesthesia Weeks Gestation Incision Type Labor Labor Length Hrs Delivered By Post Complications Tubal Sterilization Discharge Date Comments 7 [facility] idural 42 Inductio n , AROM Discharge Information Feeding Method Contraceptive Method Maternal HG B and HCT Levels Ob Episode Information Episode Created Date Number of Fetuses Patient Bloodtype Patient rh Status Prepregnancy Weight lbs Domestic Partner Domestic Partner Phone Father Name Avp Status 01/07/20 23 1 CLOSED Fetus Data First Name Last Name Admitted to NICU Weight (g) Sex Living Outcome Pediatric Complications Fetus ID Race Codes Race Delivery Type 3628.73 6 M Full Term 1001 VAGINAL Emre Calculation Initial Emre Date Initial Exam Date Initial Exam Provider Initial Ultrasound Date Last Menstrual Period Date Ultra Sound Weeks Gestation 0 Eighteen To Twenty Week Emre Update Ultra Sound Date Fundal Height At Umbil Quickening Date Ultra Sound Latest Weeks Gestation Final Emre Confirmed By Final Emre Confirmed Date Final Emre Date Ultra Sound Latest Days Gestation 0 0 Menstrual History Last Menstrual Date Menses Monthly On Bcp Conception Prior Menses Frequency Hcg Plus Date Menarche Onset Age Delivery Information Delivery Date Delivery Type Labor Anesthesia Weeks Gestation Incision Type Labor Labor Length Hrs Delivered By Post Complications Tubal Sterilization Discharge Date Comments 2 [facility] idural 38 SROM Discharge Information Feeding Method Contraceptive Method Maternal HG B and HCT Levels Ob Episode Information Episode Created Date Number of Fetuses Patient Bloodtype Patient rh Status Prepregnancy Weight lbs Domestic Partner Domestic Partner Phone Father Name Avp Status 01/07/20 23 1 CLOSED Fetus Data First Name Last Name Admitted to NICU Weight (g) Sex Living Outcome Pediatric Complications Fetus ID Race Codes Race Delivery Type 4082.32 8 F Full Term 1005 VAGINAL Emre Calculation Initial Emre Date Initial Exam Date Initial Exam Provider Initial Ultrasound Date Last Menstrual Period Date Ultra Sound Weeks Gestation 0 Eighteen To Twenty Week Emre Update Ultra Sound Date Fundal Height At Umbil Quickening Date Ultra Sound Latest Weeks Gestation Final Emre Confirmed By Final Emre Confirmed Date Final Emre Date Ultra Sound Latest Days Gestation 0 0 Menstrual History Last Menstrual Date Menses Monthly On Bcp Conception Prior Menses Frequency Hcg Plus Date Menarche Onset Age Delivery Information Delivery Date Delivery Type Labor Anesthesia Weeks Gestation Incision Type Labor Labor Length Hrs Delivered By Post Complications Tubal Sterilization Discharge Date Comments 1 [facility]- idural 39 SROM Discharge Information Feeding Method Contraceptive Method Maternal HG B and HCT Levels
[2025-08-01 10:56] LABS: INR 0.87 (0.8-1.2); Prothrombin Time 12.50 SECONDS (12.1-14.9)
[2025-08-01 10:57] LABS: Partial Thromboplastin Time 26.0 SECONDS (23.9-36.7)
[2025-08-01 11:01] LABS: Alanine Aminotransferase 26 U/L (0-33); Albumin Level 4.6 g/dL (3.5-5.2); Alkaline Phosphatase 64 U/L (35-105); Anion Gap 13.3 (5-19); Aspartate Amino Transferase 23 U/L (0-32); Blood Urea Nitrogen 11 mg/dL (6-20); Calcium 9.7 mg/dL (8.5-10.5); Carbon Dioxide 30 mmol/L (22-29); Chloride 100 mmol/L (98-107); Globulin 2.9 g/dL (1.3-4.6); Glucose 103 mg/dL (65-115); Osmolality Calculated 290 mOsm/kg (285-295); Potassium 3.3 mmol/L (3.5-5.1); Sodium 140 mmol/L (136-145); Total Protein 7.5 g/dL (6.6-8.7)
[2025-08-01 11:15] VITALS: BP 136/99; PULSE 67; O2SAT 100
[2025-08-01 11:30] VITALS: BP 136/100; PULSE 66; O2SAT 99
[2025-08-01 12:59] VITALS: BP 144/95; PULSE 66; O2SAT 98
[2025-08-01 13:08] LABS: Glucose Urine UA Negative (Normal); Nitrate Urine Negative (Negative); Specific Gravity, Urine 1.018 (1.005-1.030)
[2025-08-01 13:10] LABS: Add Urine Microscopic? YES
[2025-08-01 13:13] LABS: PCP Screen Urine Negative (Negative)
[2025-08-01 13:32] VITALS: BP 148/85; PULSE 67; O2SAT 100
== END 2025-08-01 13:32 | disposition home or self-care (01) ==
PROVIDERS: Emergency Provider Family Medicine
DX: F15.10 Other stimulant abuse, uncomplicated (principal); I10 Essential (primary) hypertension; F17.210 Nicotine dependence, cigarettes, uncomplicated
CPT/HCPCS: 36415; 70450; 80053; 80306; 81001; 85025; 85610; 85730; 93005; 99284; J9999